=== PATIENT | female | born 1990 | race Caucasian/White ===

== ENCOUNTER 2017-12-01 14:37 | Inpatient (IN) | payer OTHER ==
[2017-12-01 15:33] LABS: BASOPHILS % (AUTO) 0.3 %; EOSINOPHILS % (AUTO) 0.1 %; HGB - HEMOGLOBIN 13.4 g/dL (12.0-16.0); LYMPHOCYTES % (AUTO) 2.6 %; MEAN CORPUSCULAR HEMOGLOBIN 30.4 pg (27.0-31.0); MEAN CORPUSCULAR HGB CONC 34.4 g/dL (32.0-36.0); MEAN CORPUSCULAR VOLUME 88.4 fL (81.0-99.0); MEAN PLATELET VOLUME 7.5 fL (7.9-10.8); MONOCYTES % (AUTO) 5.8 %; NEUTROPHILS % (AUTO) 91.2 %; PLT - PLATELET COUNT 199 10^3/uL (130-450); RED BLOOD COUNT 4.41 10^6/uL (4.20-5.40); RED CELL DISTRIBUTION WIDTH 13.1 % (12.0-15.0); WHITE BLOOD COUNT 20.8 x10^3/uL (4.8-10.8)
[2017-12-01] MEDS ORDERED: SODIUM CHLORIDE 0.9% 1,000 ML IV ONE ×2 (15:33→15:43)
[2017-12-01] MEDS ORDERED: KETOROLAC 60 MG/2 ML VIAL IVP STA (15:43)
[2017-12-01] MEDS ORDERED: ACETAMINOPHEN 1,000 MG/100 ML 100 ML IV STA (15:43)
[2017-12-01 15:44] LABS: ALBUMIN 3.7 g/dL (3.2-5.5); BILIRUBIN,TOTAL 0.4 mg/dL (0.2-1.0); CALCIUM 8.6 mg/dL (8.5-10.3); CREATININE 0.8 mg/dL (0.4-1.0); TOTAL PROTEIN 7.4 g/dL (6.7-8.2)
[2017-12-01 15:49] LABS: ABNORMAL LYMPHS % (MANUAL) 0 %
--- NOTE | 2017-12-01 15:57 | ED Physician Documentation ---
History of Present Illness - Stated complaint Stated Complaint: FEVER/CHILLS - Chief complaint Chief Complaint: Fever - Additonal information Additional information: hx from pt healthy 26 y/o f was in good health had IUD placed 5 days ago - no vag bleed or dc prior and states no infections 2 days later fever then rigors, abd pain R > left and brown vag dc, NV no diarrhea no dysuira seen in clinic today - IUD string vis, cultures done sent to ED for imaging Review of Systems Constitutional: reports: Fever, Chills Cardiac: denies: Chest pain / pressure Respiratory: denies: Dyspnea GI: reports: Abdominal Pain, Nausea. denies: Diarrhea : reports: Discharge. denies: Dysuria, Now EGA Endocrine: denies: Easy bruising / bleeding Immunocompromised: denies: Immunocompromised PD PAST MEDICAL HISTORY - Past Medical History Neuro: Migraines - Past Surgical History Past Surgical History: No - Present Medications Home Medications: Ambulatory Orders Medication Instructions Recorded Confirmed Acyclovir 400 mg PO BID 12/01/17 12/01/17 SUMAtriptan succinate [Sumatriptan 100 mg PO .ONCE THEN Q2HR PRN MDD 12/01/17 12/01/17 Succinate] 200MG Sertraline HCl 50 mg PO DAILY 12/01/17 12/01/17 - Allergies Allergies/Adverse Reactions: Allergies Allergy/AdvReac Type Severity Reaction Status Date / Time No Known Drug Allergies Allergy Verified 12/01/17 15:01 - Social History Does the pt smoke?: No Smoking Status: Never smoker Does the pt drink ETOH?: Yes Substance Use and Type: Marijuana PD ED PE NORMAL - Vitals Vital signs reviewed: Yes (very tachy) - General General: Alert and oriented X 3 - Cardiac Cardiac: RRR - Respiratory Respiratory: No respiratory distress, Clear bilaterally - Abdomen Abdomen: Soft, Other (TTP ruq and rlq, + guarding, no rebound, non distended) - Female Female : Deferred (just done in clinic [facility]) - Neuro Neuro: Alert and oriented X 3 Results - Vitals Vitals: Vital Signs - 24 hr 12/01/17 12/01/17 14:56 17:39 Temperature 38.8 C H 37.3 C Heart Rate 147 H 120 H Respiratory 18 18 Rate Blood Pressure 116/58 L 112/62 O2 Saturation 99 100 Oxygen O2 Source Room air - Labs Labs: Laboratory Tests 12/01/17 12/01/17 12/01/17 15:15 15:15 15:15 WBC 20.8 H RBC 4.41 Hgb 13.4 Hct 39.0 MCV 88.4 MCH 30.4 MCHC 34.4 RDW 13.1 Plt Count 199 MPV 7.5 L Neut # (Auto) Not Reportable Lymph # (Auto) Not Reportable [place] # (Auto) Not Reportable Eos # (Auto) Not Reportable Baso # (Auto) Not Reportable Absolute Nucleated RBC Not Reportable Total Counted 100 Band Neuts % (Manual) 5 Abnorm Lymph % (Manual) 0 Nucleated RBC % Not Reportable Neutrophils # (Manual) 18.5 H Lymphocytes # (Manual) 0.4 L Monocytes # (Manual) 1.9 H Eosinophils # (Manual) 0.0 Basophils # (Manual) 0.0 Manual Slide Review Indicated Platelet Estimate NORMAL (130-450,000) Platelet Morphology NORMAL APPEARANCE RBC Morph Micro Appear NORMAL APPEARANCE Sodium 130 L Potassium 3.1 L Chloride 100 L Carbon Dioxide 20 L Anion Gap 10.0 BUN 11 Creatinine 0.8 Estimated GFR (MDRD) 85 L Glucose 114 H Lactic Acid 1.0 Calcium 8.6 Total Bilirubin 0.4 AST 27 ALT 23 Alkaline Phosphatase 55 Total Protein 7.4 Albumin 3.7 Globulin 3.7 Albumin/Globulin Ratio 1.0 Lipase 27 Serum HCG, Qual Urine Color Urine Clarity Urine pH Ur Specific [place] Urine Protein Urine Glucose (UA) Urine Ketones Urine Occult Blood Urine Nitrite Urine Bilirubin Urine Urobilinogen Ur Leukocyte Esterase Urine RBC Urine WBC Urine WBC Clumps Ur Squamous Epith Cells Urine Bacteria Ur Microscopic Review Urine Culture Comments Urine HCG, Qual 12/01/17 12/01/17 15:15 16:20 WBC RBC Hgb Hct MCV MCH MCHC RDW Plt Count MPV Neut # (Auto) Lymph # (Auto) [place] # (Auto) Eos # (Auto) Baso # (Auto) Absolute Nucleated RBC Total Counted Band Neuts % (Manual) Abnorm Lymph % (Manual) Nucleated RBC % Neutrophils # (Manual) Lymphocytes # (Manual) Monocytes # (Manual) Eosinophils # (Manual) Basophils # (Manual) Manual Slide Review Platelet Estimate Platelet Morphology RBC Morph Micro Appear Sodium Potassium Chloride Carbon Dioxide Anion Gap BUN Creatinine Estimated GFR (MDRD) Glucose Lactic Acid Calcium Total Bilirubin AST ALT Alkaline Phosphatase Total Protein Albumin Globulin Albumin/Globulin Ratio Lipase Serum HCG, Qual NEGATIVE Urine Color YELLOW Urine Clarity SL. CLOUDY Urine pH 6.0 Ur Specific [place] 1.025 Urine Protein 100 H Urine Glucose (UA) NEGATIVE Urine Ketones 15 H Urine Occult Blood MODERATE H Urine Nitrite NEGATIVE Urine Bilirubin NEGATIVE Urine Urobilinogen 0.2 (NORMAL) Ur Leukocyte Esterase NEGATIVE Urine RBC 11-25 H Urine WBC >25 H Urine WBC Clumps PRESENT Ur Squamous Epith Cells FEW Squamous Urine Bacteria Many H Ur Microscopic Review INDICATED Urine Culture Comments INDICATED Urine HCG, Qual NEGATIVE - Rads (name of study) CT AP Radiology: See rad report (R pyelo, renal cyst, no hydro or ureteral stone, small FF morrisons likely 2/2 R pyelo, appendix not well vis but no apparent appy, IUD in place s perf) PD MEDICAL DECISION MAKING - ED course ED course: pyelo VS indicte possile sepsis so got blood cx and lactate (neg) and 30+cc/kg IVF upon ID source gave rocephin feeling better but given tachycardia and WBC feel pt merits at least overnight iVF and antibiotics spoke to hospitalist who accepts pt - Sepsis Event Vital Signs: Vital Signs - 24 hr 12/01/17 12/01/17 14:56 17:39 Temperature 38.8 C H 37.3 C Heart Rate 147 H 120 H Respiratory 18 18 Rate Blood Pressure 116/58 L 112/62 O2 Saturation 99 100 Oxygen O2 Source Room air Departure - Departure Disposition: ED Place in Observation Clinical Impression: Pyelonephritis, SIRS (systemic inflammatory response syndrome) Condition: Fair Follow-Up: Krissy Thompson DO [Provider Admit Priv/Credential] -
[2017-12-01 16:10] LABS: BAND NEUTROPHILS % (MANUAL) 5 %; LYMPHOCYTES # (MANUAL) 0.4 10^3/uL (1.5-3.5); LYMPHOCYTES % (MANUAL) 2 %; MONOCYTES # (MANUAL) 1.9 10^3/uL (0.0-1.0); NEUTROPHILS # (MANUAL) 18.5 10^3/uL (1.5-6.6); NEUTROPHILS % (MANUAL) 84 %
[2017-12-01 16:11] LABS: PLATELET ESTIMATE, MANUAL NORMAL (130-450,000) (NORMAL); PLATELET MORPHOLOGY NORMAL APPEARANCE (NORMAL); RBC MORPHOLOGY (MULTIPLE) NORMAL APPEARANCE (NORMAL)
[2017-12-01] MEDS ORDERED: IOPAMIDOL-300 100 ML VIAL ONE (16:32)
[2017-12-01 16:40] LABS: BILIRUBIN,URINE NEGATIVE (NEGATIVE); GLUCOSE, URINE (UA) NEGATIVE (NEGATIVE); KETONES,URINE (UA) 15 mg/dL (NEGATIVE); LEUKOCYTE ESTERASE, URINE NEGATIVE (NEGATIVE); NITRITE,URINE NEGATIVE (NEGATIVE); OCCULT BLOOD,URINE MODERATE (NEGATIVE); PROTEIN,URINE 100 mg/dL (NEGATIVE); UROBILINOGEN,URINE 0.2 (NORMAL) E.U./dL (NORMAL)
[2017-12-01 16:50] LABS: HCG,QUALITATIVE BLOOD NEGATIVE
[2017-12-01 16:52] LABS: CLARITY,URINE SL. CLOUDY (CLEAR); HCG UR QUAL NEGATIVE
[2017-12-01 16:53] LABS: BACTERIA,URINE Many /HPF (None Seen); SQUAMOUS EPITHELIAL CELL,UR FEW Squamous (<= Few); WBC CLUMPS,URINE PRESENT
[2017-12-01] MEDS ORDERED: IOPAMIDOL-300 100 ML VIAL IVP ONE (17:16)
--- NOTE | 2017-12-01 17:49 | CT Report ---
Reason: severe R abd pain fever tachy s/ IUD placement Procedure Date: 12/01/2017 Accession Number: [id number] / [id number] Procedure: CT - Abdomen/Pelvis W/ CPT Code: FULL RESULT: EXAM: CT ABDOMEN AND PELVIS EXAM DATE: 12/01/2017 05:14 PM. CLINICAL HISTORY: Severe R abd pain fever tachy s/ IUD placement. COMPARISONS: None. TECHNIQUE: Routine helical CT imaging was performed through the abdomen and pelvis. IV contrast: ISOVUE 300 100mL. Enteric contrast: No. Reconstructions: Coronal and sagittal. In accordance with CT protocol optimization, one or more of the following dose reduction techniques were utilized for this exam: automated exposure control, adjustment of mA and/or KV based on patient size, or use of iterative reconstructive technique. FINDINGS: Lung Bases: Unremarkable. Liver: Normal in size, contour, and enhancement. Minimal periportal edema. Gallbladder/Bile Ducts: Unremarkable. Spleen: Normal. Pancreas: Normal. Adrenal Glands: Normal. Kidneys: Left kidney unremarkable. Right kidney with moderate patchy cortical hypoenhancement in the upper to mid kidney. Mild right perinephric fat stranding. Simple-appearing 2.2 cm cortical cyst in the mid right kidney. No hydronephrosis. Possible tiny upper and lower pole right renal calculi. No hydroureter. No ureteral calculus. Peritoneal Cavity/Bowel: Unopacified stomach and small bowel are nondistended. Appendix is not clearly identified. There is minimal formed stool in the colon. There is no pericolonic fat stranding. There is minimal dependent free fluid in the pelvis area there is minimal free fluid in Morison's pouch. There is no the peritoneum or lymphadenopathy. Pelvic Organs: Bladder is unremarkable. Anteverted uterus is normal in size. IUD is in the expected position. Ovaries are not enlarged. There is a collapsed-appearing 2.1 cm rim-enhancing left ovarian cyst suggesting a corpus luteum. Vasculature: No aneurysms or other significant abnormality. Bones: Moderate disk height loss. Mild anterior endplate osteophyte formation. Small inferior Schmorl's node at T12-L1. Other: None. IMPRESSION: 1. Upper to mid pole right pyelonephritis. No hydronephrosis. Possible tiny upper and lower pole right renal calculi. 2. Minimal free fluid in Morison's pouch and in the pelvis. Minimal intrahepatic periportal edema. These findings are nonspecific but probably are related to the inflammatory state from pyelonephritis. 3. IUD in the expected position. 4. 2.1 cm probable left ovarian corpus luteum. RADIA
[2017-12-01] MEDS ORDERED: cefTRIAXone 1 GM in SODIUM CHLORIDE 0.9% MINIBAG 100 ML IV STA (18:13)
[2017-12-01] MEDS ORDERED: POTASSIUM CHLORIDE 20 MEQ TABLET PO STA (18:32)
[2017-12-01] MEDS ORDERED: SODIUM CHLORIDE FLUSH 0.9% 10 ML SYRINGE IVP PRN (19:14)
--- NOTE | 2017-12-01 19:24 | HISTORY & PHYSICAL EXAMINATION ---
Chief Complaint - Chief Complaint Chief Complaint: fever/chills History of Present Illness - Admitted From Admitted From:: ED - History Obtained From Records Reviewed: yes History obtained from: patient, chart review Exam Limitations: none - History of Present Illness HPI Comment/Other: [place] Guerra is a 26-year old female with a past medical history of IUD, depression, migraines, and without any other medical history. The patient denies recent bladder symptoms or hematuria. On November 27, she had an IUD inserted and does not recall urinating afterward. She denies recent sexual intercourse and is recently . On Friday she had some mild cramping in her low abdomen and these resolved. She went out with her friends on Friday night and became mildly intoxicated. She ran a 5K on Friday without difficulty, and by Thursday 11/30 (yesterday), she started having fevers, chills, rigors and nauseated. She denied shortness of breath, rashes, bleeding, syncope, chest pain, dysuria, or recent weight loss. An abdominal CT was done for worrisome complaints as her IUD was new. Imaging confirmed a right pyelonephritis. Lab show a very elevated WBC count of 20.8, febrile at 38.8, tachycardia with heart rates in the 140's, hyponatremia with a sodium of 130, hypokalemia with a potassium of 3.1, without any other lab abnormalities. A urine was obtained which show a UTI. She was started on Rocephin IV, that will continue. She will be admitted to inpatient for further care. History - Past Medical History Cardiovascular: reports: None Respiratory: reports: None Neuro: reports: Migraines Endocrine/Autoimmune: reports: None GI: reports: None ATTENDING PSYCHIATRIST: reports: Ovarian cysts (2.1 cm left ovarian cyst) : reports: None HEENT: reports: None Psych: reports: None Musculoskeletal: reports: None Derm: reports: None MRSA Hx?: No - Family & Social History Family History: Mother: Alive and Well, Father: Alive and Well Living arrangement: At home Living Situation: With family (lives w/ 2 year old daughter), With friend(s) (lives with a friend, recently .) Social History Notes: 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 She is going through a divorce and has a 2-year old son that she has anthropology department chair. She lives with one of her girl friends and has supportive parents that help her. She denies illicit drug use, except for occasional marijuana use, occassional alcohol use-never more than 3-4 in one sitting, and denies tobacco dependence. She wishes to be a FULL code. - Substance History Use: Uses substance without health or social issues: NONE Abuse: Recurrent use of substance despite neg consequences: NONE Dependence: Experiences withdrawal or developed tolerances: NONE - POLST Patient has POLST: No POLST Status: Full Code Meds/Allgy - Home Medications Home Medications: Ambulatory Orders Medication Instructions Recorded Confirmed Acyclovir 400 mg PO BID 12/01/17 12/01/17 SUMAtriptan succinate [Sumatriptan 100 mg PO .ONCE THEN Q2HR PRN MDD 12/01/17 12/01/17 Succinate] 200MG Sertraline HCl 50 mg PO DAILY 12/01/17 12/01/17 - Allergies Allergies/Adverse Reactions: Allergies Allergy/AdvReac Type Severity Reaction Status Date / Time No Known Drug Allergies Allergy Verified 12/01/17 15:01 Review of Systems - Constitutional Constitutional: reports: Fatigue, Fever, Chills, Weakness, Poor appetite - Cardiovascular Cariovascular: reports: Palpitations - Gastrointestinal Gastrointestinal: reports: Abdominal pain, Abdominal distention, Nausea, Bloating, Poor appetite - Genitourinary Genitourinary: reports: Dysuria - Musculoskeletal Musculoskeletal: reports: Muscle pain, Back pain, Muscle aches - Neurological Neurological: reports: General weakness, Headache - All Other Systems All Other Systems: reports: Reviewed and negative Exam - Vital Signs Reviewed Vital Signs: Yes Vital Signs: Vital Signs x48h Temp Pulse Resp BP Pulse Ox 12/01/17 18:35 37.1 C 110 H 24 107/64 100 12/01/17 17:39 37.3 C 120 H 18 112/62 100 12/01/17 14:56 38.8 C H 147 H 18 116/58 L 99 - Physical Exam General Appearance: positive: Alert, Moderate distress Eyes Bilateral: positive: Normal inspection, PERRL ENT: positive: ENT inspection nml, Pharynx nml, No signs of dehydration Neck: positive: Nml inspection, Thyroid nml, No JVD, Trachea midline Respiratory: positive: Chest non-tender, No respiratory distress, Other (scattered crackles bilaterally) Cardiovascular: positive: Regular rate & rhythm, No murmur, No gallop Peripheral Pulses: positive: 2+ Abdomen: positive: Tenderness, Guarding, Abnml bowel sounds Back: positive: Nml inspection Skin: positive: No rash, Warm, Dry, Diaphoresis, Pallor Extremities: positive: Non-tender, Full ROM, Nml appearance, No pedal edema Neurologic/Psychiatric: positive: Oriented x3, CN's nml (2-12), Motor nml, Sensation nml, Mood/affect nml Reflexes: Bicep (R): 4+, Bicep (L): 4+ Conclusion/Plan - Problem List (1) Pyelonephritis Conclusion/Plan: The patient denies recent bladder symptoms or hematuria. On November 27, she had an IUD inserted and does not recall urinating afterward. She denies recent sexual intercourse and is recently . On Friday she had some mild cramping in her low abdomen and these resolved. She went out with her friends on Friday night and became mildly intoxicated. She ran a 5K on Friday without difficulty, and by Thursday 11/30 (yesterday), she started having fevers, chills, rigors and nauseated. An abdominal CT was done for worrisome complaints as her IUD was new. Imaging confirmed a right pyelonephritis. She was started on Rocephin IV, that will continue. Plan: Continue IVFs, pain control and IV rocephin. (3) CVA tenderness Conclusion/Plan: Upon exam the patient is sore with palpation to right and left mid-back. She states that she has had back pain for the past few days, but this has become much worse today. Plan: Continue to monitor. (4) Ovarian cyst, left Conclusion/Plan: On imaging the patient is noted to have a 2.1 mm left ovarian cyst. It is not found anywhere in her history. She has low abdominal tenderness on exam that is bilateral. Plan: Discuss with her in the AM. (5) Chronic migraine Conclusion/Plan: The patient states that she even had headaches as a child and now gets them when she has her menses. Plan: Continue to monitor. - Lab Results Lab results reviewed: Yes Fish Bones: 12/02/17 05:42 12/02/17 05:42 - Diagnostic Imaging Results Diagnostic Imaging Results: positive: Final report reviewed Core Measures - Anticipated LOS I expect patient to be DC'd or transferred within 96 hours.: Yes - DVT/VTE - Prophylaxis VTE/DVT Device ordered at admit?: Yes VTE/DVT Prophylaxis med ordered at admit?: Yes - Stroke - Rehab Assessment Rehab services assessment to be ordered?: No Not Ordered - Medical Reason: Contraindicated - AMI - Statin at Admit Aspirin Prescribed on Admit: No Not Ordered - Medical Reason: Contraindicated
[2017-12-01] MEDS: NS W/20 MEQ KCL 1,000 ML IV SCH (20:27)
[2017-12-01] MEDS: KETOROLAC 30 MG/ML VIAL IVP PRN (21:24)
[2017-12-01] MEDS ORDERED: HYDROmorphone 1 MG/ML CARPUJECT IVP PRN (21:51)
[2017-12-01] MEDS ORDERED: diphenhydrAMINE INJ 50 MG/ML VIAL IVP PRN (21:52)
[2017-12-01] MEDS ORDERED: IBUPROFEN 600 MG TABLET PO PRN (21:55)
[2017-12-02] MEDS ORDERED: IBUPROFEN 600 MG TABLET PO SCH
[2017-12-02] MEDS: SODIUM CHLORIDE FLUSH 0.9% 10 ML SYRINGE IVP SCH ×3 (00:07→17:31)
[2017-12-02] MEDS: ACETAMINOPHEN 325 MG TABLET PO PRN ×3 (01:46→14:48)
[2017-12-02] MEDS: NS W/20 MEQ KCL 1,000 ML IV SCH ×3 (04:10→20:18)
[2017-12-02 05:55] LABS: BASOPHILS % (AUTO) 0.1 %; HGB - HEMOGLOBIN 11.4 g/dL (12.0-16.0); LYMPHOCYTES # (AUTO) 0.8 10^3/uL (1.5-3.5); LYMPHOCYTES % (AUTO) 5.2 %; MEAN CORPUSCULAR HEMOGLOBIN 30.9 pg (27.0-31.0); MEAN CORPUSCULAR VOLUME 90.9 fL (81.0-99.0); MEAN PLATELET VOLUME 7.5 fL (7.9-10.8); MONOCYTES # (AUTO) 1.1 10^3/uL (0.0-1.0); MONOCYTES % (AUTO) 7.1 %; NEUTROPHILS # (AUTO) 13.6 10^3/uL (1.5-6.6); NEUTROPHILS % (AUTO) 87.6 %; PLT - PLATELET COUNT 167 10^3/uL (130-450); RED BLOOD COUNT 3.69 10^6/uL (4.20-5.40); WHITE BLOOD COUNT 15.5 x10^3/uL (4.8-10.8)
[2017-12-02 06:08] LABS: ALBUMIN 2.9 g/dL (3.2-5.5); ALBUMIN/GLOBULIN RATIO 1.1 (1.0-2.2); BILIRUBIN,TOTAL 0.6 mg/dL (0.2-1.0); CALCIUM 7.3 mg/dL (8.5-10.3); CREATININE 0.6 mg/dL (0.4-1.0); TOTAL PROTEIN 5.6 g/dL (6.7-8.2)
[2017-12-02] MEDS: KETOROLAC 30 MG/ML VIAL IVP PRN (06:54)
[2017-12-02] MEDS: ENOXAPARIN 40 MG/0.4 ML SYRINGE SUBQ SCH (08:19)
[2017-12-02] MEDS: SERTRALINE 50 MG TABLET PO SCH (08:19)
[2017-12-02] MEDS: POLYETHYLENE GLYCOL 3350 17 GM PACKET PO SCH (08:20)
[2017-12-02] MEDS: SACCHAROMYCES BOULARDII 250 MG CAPSULE PO SCH ×2 (09:53→17:30)
[2017-12-02] MEDS ORDERED: cefTRIAXone 1 GM in SODIUM CHLORIDE 0.9% MINIBAG 100 ML IV SCH (12:00)
[2017-12-02] MEDS ORDERED: cefTRIAXone 1 GM VIAL IVP SCH (12:00)
[2017-12-02] MEDS ORDERED: ONDANSETRON ODT 4 MG TABLET TL PRN (14:34)
[2017-12-02] MEDS: ONDANSETRON 4 MG/2 ML VIAL IVP PRN (14:45)
--- NOTE | 2017-12-02 21:57 | PROVIDER PROGRESS NOTE ---
Subjective - Prog Note Date Prog Note Date: 12/02/17 Prog Note Time: 12:00 - Subjective Pt reports feeling: Improved Subjective: [place] admits to overall improvement, but is found to be nauseated with active vomiting upon exam. She denies any new symptoms such as headache, shortness of breath, chest pain, bleeding, a new cough, or increased dizziness. Current Medications - Current Medications Current Medications: Active Medications Acetaminophen (Tylenol) 650 mg PO Q4HR PRN PRN Reason: Pain or Fever > 38C (100.4F) Last Admin: 12/02/17 14:48 Dose: 650 mg Diphenhydramine HCl (Benadryl Inj) 25 mg IVP Q6H PRN PRN Reason: Allergy Symptoms Enoxaparin Sodium (Lovenox) 40 mg SUBQ DAILY [facility] Last Admin: 12/02/17 08:19 Dose: 40 mg Hydromorphone HCl (Dilaudid Inj Carp) 1 mg IVP Q2HR PRN PRN Reason: PAIN Potassium Chloride/Sodium Chloride (Normal Saline 0.9% W/20 Meq Kcl) 1,000 mls @ 125 mls/hr IV .Q8H [facility] Last Admin: 12/02/17 20:18 Dose: 125 mls/hr Ibuprofen (Motrin) 600 mg PO Q6HR PRN PRN Reason: FEVER > 100.5 F Last Admin: 12/02/17 14:04 Dose: 600 mg Ketorolac Tromethamine (Toradol Inj (30mg)) 30 mg IVP Q6HR PRN PRN Reason: PAIN Stop: 12/06/17 21:05 Last Admin: 12/02/17 06:54 Dose: 30 mg Ondansetron HCl (Zofran Inj) 4 mg IVP Q4HR PRN PRN Reason: Nausea / Vomiting Last Admin: 12/02/17 14:45 Dose: 4 mg Ondansetron HCl (Zofran Odt) 4 mg TL Q4HR PRN PRN Reason: Nausea / Vomiting Polyethylene Glycol (Miralax) 17 gm PO DAILY [facility] Last Admin: 12/02/17 08:20 Dose: Not Given Saccharomyces Boulardii (Florastor) 500 mg PO BIDWM [facility] Last Admin: 12/02/17 17:30 Dose: 500 mg Sertraline HCl (Zoloft) 50 mg PO DAILY [facility] Last Admin: 12/02/17 08:19 Dose: 50 mg Sodium Chloride (Normal Saline Flush 0.9%) 10 ml IVP PRN PRN PRN Reason: NEEDED PER PROVIDER ORDERS Last Admin: 12/01/17 20:27 Dose: 10 ml Sodium Chloride (Normal Saline Flush 0.9%) 10 ml IVP 0100,0900,1700 [facility] Last Admin: 12/02/17 17:31 Dose: Not Given Acyclovir 400 mg PO BID 12/01/17 SUMAtriptan succinate [Sumatriptan Succinate] 100 mg PO .ONCE THEN Q2HR PRN MDD 200MG 12/01/17 Sertraline HCl 50 mg PO DAILY 12/01/17 Objective - Vital Signs/Intake & Output Reviewed Vital Signs: Yes Vital Signs: Vital Signs x48h Temp Pulse Resp BP Pulse Ox 12/02/17 15:50 37.2 C 119 H 18 103/64 99 Intake & Output: Intake & Output 11/29/17 11/30/17 12/01/17 12/02/17 23:59 23:59 23:59 23:59 Intake Total 2200 3272.916 Output Total 1000 Balance 2200 2272.916 - Objective General Appearance: positive: Alert, Moderate distress, Anxious Eyes Bilateral: positive: Normal inspection, PERRL ENT: positive: ENT inspection nml, Pharynx nml Neck: positive: Nml inspection, Thyroid nml, No JVD, Lymphadenopathy (R), Lymphadenopathy (L) Respiratory: positive: Chest non-tender, No respiratory distress, Breath sounds nml Cardiovascular: positive: Regular rate & rhythm, No murmur, No gallop, Tachycardia Peripheral Pulses: 1+ Radial (R), 1+ Radial (L) Abdomen: positive: Nml bowel sounds, Tenderness, Guarding Back: positive: Nml inspection, CVA tenderness (R), CVA tenderness (L) Skin: positive: No rash, Warm, Dry, Diaphoresis, Pallor Extremities: positive: Non-tender, Full ROM, Nml appearance, No pedal edema Neurologic/Psychiatric: positive: Oriented x3, CN's nml (2-12), Motor nml, Sensation nml, Mood/affect nml Reflexes: Bicep (R): 4+, Bicep (L): 4+ - Lab Results Fish Bones: 12/03/17 04:15 12/03/17 04:15 Other Labs: Lab Results x24hrs 12/02/17 12/02/17 Range/Units 05:42 05:42 WBC 15.5 H (4.8-10.8) x10^3/uL RBC 3.69 L (4.20-5.40) 10^6/uL Hgb 11.4 L (12.0-16.0) g/dL Hct 33.6 L (37.0-47.0) % MCV 90.9 (81.0-99.0) fL MCH 30.9 (27.0-31.0) pg MCHC 34.0 (32.0-36.0) g/dL RDW 13.0 (12.0-15.0) % Plt Count 167 (130-450) 10^3/uL MPV 7.5 L (7.9-10.8) fL Neut # (Auto) 13.6 H (1.5-6.6) 10^3/uL Lymph # (Auto) 0.8 L (1.5-3.5) 10^3/uL [place] # (Auto) 1.1 H (0.0-1.0) 10^3/uL Eos # (Auto) 0.0 (0.0-0.7) 10^3/uL Baso # (Auto) 0.0 (0.0-0.1) 10^3/uL Absolute Nucleated RBC 0.00 x10^3/uL Nucleated RBC % 0.0 /100WBC Sodium 136 (135-145) mmol/L Potassium 3.8 (3.5-5.0) mmol/L Chloride 110 (101-111) mmol/L Carbon Dioxide 21 (21-32) mmol/L Anion Gap 5.0 L (6-13) BUN 7 (6-20) mg/dL Creatinine 0.6 (0.4-1.0) mg/dL Estimated GFR (MDRD) 119 (>89) Glucose 118 H (70-100) mg/dL Calcium 7.3 L (8.5-10.3) mg/dL Total Bilirubin 0.6 (0.2-1.0) mg/dL AST 41 (10-42) IU/L ALT 37 (10-60) IU/L Alkaline Phosphatase 57 (42-121) IU/L Total Protein 5.6 L (6.7-8.2) g/dL Albumin 2.9 L (3.2-5.5) g/dL Globulin 2.7 (2.1-4.2) g/dL Albumin/Globulin Ratio 1.1 (1.0-2.2) ABX Reporting Has patient been on IV antibiotics over the past 48 hours?: Yes Assessment/Plan - Problem List (1) Pyelonephritis Impression: The patient denies recent bladder symptoms or hematuria. On November 27, she had an IUD inserted and does not recall urinating afterward. She de nies recent sexual intercourse and is recently . On Friday she had some mild cramping in her low abdomen and these resolved. She went out with her friends on Friday night and became mildly intoxicated. She ran a 5K on Friday without difficulty, and by Thursday 11/30 (yesterday), she started having fevers, chills, rigors and nauseated. An abdominal CT was done for worrisome complaints as her IUD was new. Imaging confirmed a right pyelonephritis. She was started on Rocephin IV, that will continue. Clinically today she continues to improve, although is nauseated. She denies dysuria, but states that her urine color is not her normal as it appears darker. Plan: Continue IVFs, pain control and IV rocephin. (2) Nausea and vomiting Impression: The patient is found actively vomiting and was given zofran. She states that she has had a good appetite and has been able to eat. She states that the nausea just "sneaks up on her", and was at first reluctant in taking the zofran. This improved by later in the day. Plan: Continue to monitor and offer anti emetics. (3) CVA tenderness Impression: Upon exam the patient is sore with palpation to right and left mid-back. She states that she has had back pain for the past few days, but this has become much worse upon my initial exam. This is not a complaint of hers today and she states that she is moving around well. Plan: Continue to monitor. (4) Ovarian cyst, left Impression: On imaging the patient is noted to have a 2.1 mm left ovarian cyst. It is not found anywhere in her history. She has low abdominal tenderness on exam that is bilateral. The patient was told of this finding and this will be monitored. She denies increased LLQ pain or discomfort. Plan: Recommend follow up with her PCP. (5) Chronic migraine Impression: The patient states that she even had headaches as a child and now gets them when she has her menses. She denies headache today, although she is nauseated and vomiting today. She states that in the past she has used wild yam root with good success, and is prescribed Imatrex PRN which she only uses 2-3 times per year. Plan: Continue to monitor. (6) Fever Impression: The patient had an elevated temp upon admission of 38.8, that has now normalized. Blood cultures were taken, that hare negative so far. She denies chills, or sweats. Plan: Continue to monitor.
[2017-12-03] MEDS: ONDANSETRON 4 MG/2 ML VIAL IVP PRN (00:26)
[2017-12-03] MEDS: SODIUM CHLORIDE FLUSH 0.9% 10 ML SYRINGE IVP SCH ×2 (00:28→10:16)
[2017-12-03] MEDS: NS W/20 MEQ KCL 1,000 ML IV SCH (03:53)
[2017-12-03 04:53] LABS: BASOPHILS # (AUTO) 0.1 10^3/uL (0.0-0.1); BASOPHILS % (AUTO) 0.7 %; EOSINOPHILS % (AUTO) 0.1 %; HGB - HEMOGLOBIN 11.2 g/dL (12.0-16.0); LYMPHOCYTES # (AUTO) 1.1 10^3/uL (1.5-3.5); LYMPHOCYTES % (AUTO) 9.2 %; MEAN CORPUSCULAR HEMOGLOBIN 30.9 pg (27.0-31.0); MEAN CORPUSCULAR HGB CONC 34.2 g/dL (32.0-36.0); MEAN CORPUSCULAR VOLUME 90.6 fL (81.0-99.0); MEAN PLATELET VOLUME 8.3 fL (7.9-10.8); MONOCYTES # (AUTO) 0.9 10^3/uL (0.0-1.0); MONOCYTES % (AUTO) 7.5 %; NEUTROPHILS # (AUTO) 10.2 10^3/uL (1.5-6.6); NEUTROPHILS % (AUTO) 82.5 %; PLT - PLATELET COUNT 188 10^3/uL (130-450); RED BLOOD COUNT 3.63 10^6/uL (4.20-5.40); RED CELL DISTRIBUTION WIDTH 13.6 % (12.0-15.0); WHITE BLOOD COUNT 12.4 x10^3/uL (4.8-10.8)
[2017-12-03 05:01] LABS: ALBUMIN 2.7 g/dL (3.2-5.5); ALBUMIN/GLOBULIN RATIO 0.9 (1.0-2.2); BILIRUBIN,TOTAL 0.5 mg/dL (0.2-1.0); CALCIUM 7.4 mg/dL (8.5-10.3); CREATININE 0.6 mg/dL (0.4-1.0); TOTAL PROTEIN 5.7 g/dL (6.7-8.2)
[2017-12-03] MEDS: ACETAMINOPHEN 325 MG TABLET PO PRN (06:48)
[2017-12-03 07:47] VITALS: BP 127/77
[2017-12-03] MEDS: ENOXAPARIN 40 MG/0.4 ML SYRINGE SUBQ SCH (08:12)
[2017-12-03] MEDS: SACCHAROMYCES BOULARDII 250 MG CAPSULE PO SCH (08:12)
[2017-12-03] MEDS: POLYETHYLENE GLYCOL 3350 17 GM PACKET PO SCH (08:12)
[2017-12-03] MEDS: SERTRALINE 50 MG TABLET PO SCH (08:12)
--- NOTE | 2017-12-03 08:25 | Discharge Plan ---
Discharge Plan Disposition: Home, Self Care Condition: Good Prescriptions: Amoxicillin/Potassium Clav [Amox Tr-K Clv 875-125 mg Tab] 1 each PO BID 7 Days #14 tablet Ondansetron HCl [Zofran] 4 mg PO Q4H #25 tablet Saccharomyces Boulardii [Florastor] 250 mg PO BID #60 capsule Diet: Regular Activity Restrictions: No Restrictions Shower Restrictions: No Driving Restrictions: No Weight Bearing: Full Weight Additional Instructions or Follow Up instructions: You were admitted for a kidney infection or pyelonephritis and given IV antibiotics. A urine sample showed e. coli, with sensitivities to several antibiotics. Please continue antibiotics by mouth for another 7 days at home. Also, take a probiotic as antibiotics can cause diarrhea. You were nauseated as a consequence of this illness, so I have also sent zofran to the pharmacy. You should drink more fluids than you normally would for the next week. No Smoking: If you smoke, Please STOP! Call for help. Follow-up with: Krissy Thompson DO [Provider Admit Priv/Credential] -
--- NOTE | 2017-12-03 10:40 | DISCHARGE SUMMARY ---
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 Dorsalgia, unspecified- resolved. Fever, unspecified- resolved. Unspecified ovarian cyst, left side- chronic, stable. Presence of (intrauterine) contraceptive device- chronic, stable. Nausea- improved, zofran sent to the pharmacy. Chronic migraine- chronic, stable. - HPI History of Present Illness: Indiana Guerra is a 26-year old female with a past medical history of IUD, depression, migraines, and without any other medical history. The patient denies recent bladder symptoms or hematuria. On November 27, she had an IUD inserted and does not recall urinating afterward. She denies recent sexual intercourse and is recently . On Friday she had some mild cramping in her low abdomen and these resolved. She went out with her friends on Friday night and became mildly intoxicated. She ran a 5K on Friday without difficulty, and by Thursday 11/30 (yesterday), she started having fevers, chills, rigors and nauseated. She denied shortness of breath, rashes, bleeding, syncope, chest pain, dysuria, or recent weight loss. An abdominal CT was done for worrisome complaints as her IUD was new. Imaging confirmed a right pyelonephritis. Lab show a very elevated WBC count of 20.8, febrile at 38.8, tachycardia with heart rates in the 140's, hyponatremia with a sodium of 130, hypokalemia with a potassium of 3.1, without any other lab abnormalities. A urine was obtained which show a UTI. She was started on Rocephin IV, that will continue. She will be admitted to inpatient for further care. - HOSPITAL COURSE Hospital Course: (1) Pyelonephritis The patient denies recent bladder symptoms or hematuria. On November 27, she had an IUD inserted and does not recall urinating afterward. She denies recent sexual intercourse and is recently . On Friday she had some mild cramping in her low abdomen and these resolved. She went out with her friends on Friday night and became mildly intoxicated. She ran a 5K on Friday without difficulty, and by Thursday 11/30 (yesterday), she started having fevers, chills, rigors and nauseated. An abdominal CT was done for worrisome complaints as her IUD was new. Imaging confirmed a right pyelonephritis. She was started on Rocephin IV, that was continued and changed to Augmentin to be continued for another 7 days at home; based on a urine culture that grew out e. coli that had several sensitivities. Clinically she continued to improve, although was mildly nauseated at times. She denied dysuria, but stated that her urine color is not her normal as it appears darker. This condition was stable, and she is expected to do well at home providing that she keeps up with her antibiotics. (2) Nausea and vomiting The patient is found actively vomiting and was given zofran. She states that she has had a good appetite and has been able to eat. She states that the nausea just "sneaks up on her", and was at first reluctant in taking the zofran. This improved and she was given zofran which was sent to the pharmacy. (3) CVA tenderness Upon exam the patient is sore with palpation to right and left mid-back. She states that she has had back pain for the past few days, but this has become much worse upon my initial exam. This is not a complaint of hers today and she states that she is moving around well. (4) Ovarian cyst, left On imaging the patient is noted to have a 2.1 mm left ovarian cyst, although it was noted to a corpus luteum type, so this will likely go away. She has low abdominal tenderness on exam that is bilateral. The patient was told of this finding and this will be monitored. She denied increased LLQ pain or discomf ort. (5) Chronic migraine The patient states that she even had headaches as a child and now gets them when she has her menses. She denied headaches, although she was nauseated and vomiting. She states that in the past she has used wild yam root with good success, and is prescribed Imatrex PRN which she only uses 2-3 times per year. This condition is stable. (6) Fever The patient had an elevated temp upon admission of 38.8, that has now nor malized. Blood cultures were taken, that remain negative at the time of discharge. She denied chills, or sweats overnight and this condition is resolved. (7) IUD implant The patient's PCP implanted an IUD for continued contraception, and this was double checked prior to this admission for any abnormalities. Disposition: The patient was anxious to return home with her 2-year old son with her parent to help. Her prescriptions were sent to her pharmacy of choice. She was medically stable and transported via private car home. - ALLERGIES Allergies/Adverse Reactions: Allergies Allergy/AdvReac Type Severity Reaction Status Date / Time No Known Drug Allergies Allergy Verified 12/01/17 15:01 - MEDICATIONS Home Medications: Ambulatory Orders Medication Instructions Recorded Confirmed Acyclovir 400 mg PO BID 12/01/17 12/01/17 SUMAtriptan succinate [Sumatriptan 100 mg PO .ONCE THEN Q2HR PRN MDD 12/01/17 12/01/17 Succinate] 200MG Sertraline HCl 50 mg PO DAILY 12/01/17 12/01/17 Amoxicillin/Potassium Clav [Amox 1 each PO BID 7 Days #14 tablet 12/03/17 Tr-K Clv 875-125 mg Tab] Ondansetron HCl [Zofran] 4 mg PO Q4H #25 tablet 12/03/17 Saccharomyces Boulardii [Florastor] 250 mg PO BID #60 capsule 12/03/17 - PHYSICAL EXAM AT DISCHARGE General Appearance: positive: No acute distress, Alert Eyes Bilateral: positive: Normal inspection, PERRL ENT: positive: ENT inspection nml, Pharynx nml, No signs of dehydration Neck: positive: Nml inspection, Thyroid nml, No JVD, Trachea midline Respiratory: positive: Chest non-tender, No respiratory distress, Breath sounds nml Cardiovascular: positive: Regular rate & rhythm, No murmur, No gallop Peripheral Pulses: positive: 2+ Abdomen: positive: Non-tender, Nml bowel sounds, Guarding Back: positive: Nml inspection Skin: positive: Color nml, No rash, Warm, Dry Extremities: positive: Non-tender, Full ROM, Nml appearance, No pedal edema Neurologic/Psychiatric: positive: Oriented x3, CN's nml (2-12), Motor nml, Sensation nml, Mood/affect nml Reflexes: Bicep (R): 4+, Bicep (L): 4+ - LABS Result Diagrams: 12/03/17 04:15 12/03/17 04:15 - DIAGNOSTIC IMAGING Diagnostic Imaging Results: Final report reviewed Diagnostic Imaging Results Comments: EXAM: CT ABDOMEN AND PELVIS EXAM DATE: 12/01/2017 05:14 PM. IMPRESSION: 1. Upper to mid pole right pyelonephritis. No hydronephrosis. Possible tiny upper and lower pole right renal calculi. 2. Minimal free fluid in Morison's pouch and in the pelvis. Minimal intrahepatic periportal edema. These findings are nonspecific but probably are related to the inflammatory state from pyelonephritis. 3. IUD in the expected position. 4. 2.1 cm probable left ovarian corpus luteum. - FOLLOW UP Follow Up: Disposition: 01 Home, Self Care Condition: Good Prescriptions: Amoxicillin/Potassium Clav [Amox Tr-K Clv 875-125 mg Tab] 1 each PO BID 7 Days #14 tablet Ondansetron HCl [Zofran] 4 mg PO Q4H #25 tablet Saccharomyces Boulardii [Florastor] 250 mg PO BID #60 capsule Diet: Regular Activity Restrictions: No Restrictions Shower Restrictions: No Driving Restrictions: No Weight Bearing: Full Weight Additional Instructions or Follow Up instructions: You were admitted for a kidney infection or pyelonephritis and given IV antibiotics. A urine sample showed e. coli, with sensitivities to several antibiotics. Please continue antibiotics by mouth for another 7 days at home. Also, take a probiotic as antibiotics can cause diarrhea. You were nauseated as a consequence of this illness, so I have also sent zofran to the pharmacy. You should drink more fluids than you normally would for the next week. - TIME SPENT Time Spent in Discharge (Minutes): 50
== END 2017-12-03 11:16 | disposition home or self-care (01) | DRG 690 ==
LOC: ED 14:37 → MS3 19:14
PROVIDERS: ADMIT Nurse Practitioner; ATTEND Nurse Practitioner
DX: N12 Tubulo-interstitial nephritis, not specified as acute or chronic (principal); E87.1 Hypo-osmolality and hyponatremia; E87.6 Hypokalemia; N83.292 Other ovarian cyst, left side; M54.9 Dorsalgia, unspecified; Z97.5 Presence of (intrauterine) contraceptive device; R11.2 Nausea with vomiting, unspecified
CPT/HCPCS: 36415; 74177; 80053; 81001; 81003; 81025; 83605; 83690; 84703; 85025; 87040; 87086; 87181; 96361; 96365; 96375; 99283; 99284

== ENCOUNTER 2018-01-12 10:42 | Outpatient (CLI) | payer OTHER | END 2018-01-12 10:43 | disposition home or self-care (01) | LOC: LAB.WCP 10:42 | PROVIDERS: ATTEND Physician Assistant Medical | DX: R10.2 Pelvic and perineal pain (principal) | CPT/HCPCS: 36415; 84702 ==

== ENCOUNTER 2018-01-12 21:01 | Outpatient (CLI) | payer OTHER ==
--- NOTE | 2018-01-12 22:17 | Ultrasound Report ---
Reason: PELVIC PAIN Procedure Date: 01/12/2018 Accession Number: [id number] / [id number] Procedure: US - Pelvic w/Transvaginal CPT Code: FULL RESULT: EXAM: PELVIC ULTRASOUND EXAM DATE: 01/12/2018 09:14 PM. CLINICAL HISTORY: Pelvic pain. Bleeding. IUD one month ago. COMPARISON: None. TECHNIQUE: Realtime transabdominal pelvic scan performed to identify the uterus and adnexa and as an overview of other pelvic structures, followed by transvaginal scan to provide greater detail of the uterus and adnexa, with static image documentation. FINDINGS: Uterus: 12.8 x 6.0 x 6.5 cm, volume 258.2 cc. Anteverted position. Normal overall size and echotexture. Masses: None. Endometrium: [address] Cervix: Unremarkable. Right Ovary: 3.9 x 2.5 x 1.0 cm, volume 4.9 cc. Normal echotexture and blood flow. Left Ovary: 3.2 x 2.6 x 3.2 cm, volume 13.6 cc. Normal echotexture and blood flow. Free Fluid: None. Other: None. IMPRESSION: IUD in place, otherwise unremarkable pelvic ultrasound. RADIA
== END 2018-01-12 21:02 | disposition home or self-care (01) ==
LOC: DI 21:01
PROVIDERS: ATTEND Physician Assistant Medical
DX: R10.2 Pelvic and perineal pain (principal); Z97.5 Presence of (intrauterine) contraceptive device
CPT/HCPCS: 36415; 76830; 76856; 84702

== ENCOUNTER 2018-01-26 11:14 | Outpatient (CLI) | payer OTHER | END 2018-01-26 11:15 | disposition home or self-care (01) | LOC: LAB 11:14 | PROVIDERS: ATTEND Obstetrics & Gynecology | DX: O03.9 Complete or unspecified spontaneous abortion without complication (principal) | CPT/HCPCS: 36415; 84702 ==

== ENCOUNTER 2019-02-26 08:34 | Emergency (ER) | payer SELFPAY ==
[2019-02-26] MEDS ORDERED: cefTRIAXone 1 GM VIAL IVP STA (09:05)
[2019-02-26] MEDS ORDERED: SODIUM CHLORIDE 0.9% 1,000 ML IV ONE (09:05)
[2019-02-26] MEDS ORDERED: IBUPROFEN 600 MG TABLET PO STA (09:24)
--- NOTE | 2019-02-26 09:26 | ED Physician Documentation ---
History of Present Illness - Stated complaint Stated Complaint: FEMALE - Chief complaint Chief Complaint: Abd Pain - History obtained from History obtained from: Patient - History of Present Illness Timing: How many weeks ago (1) Pain level max: 7 Pain level now: 5 - Additonal information Additional information: 28-year-old female presents to the emergency department with fever, chills and left flank pain. Has had pyelonephritis in the past. States that this feels similar. No vaginal bleeding or discharge. No change in sexual partners. No STI exposure. No abdominal pain. Some nausea. No vomiting. No diarrhea. Does have some dysuria as well. Worse with urination, better with rest. 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 : None HEENT: None Psych: None Musculoskeletal: None Derm: None - Past Surgical History Past Surgical History: No - Present Medications Home Medications: Ambulatory Orders Medication Instructions Recorded Confirmed Cefdinir 300 mg PO BID #28 capsule 02/26/19 Ondansetron Odt [Zofran] 4 mg TL Q6H PRN #10 tablet 02/26/19 - Allergies Allergies/Adverse Reactions: Allergies Allergy/AdvReac Type Severity Reaction Status Date / Time Penicillins Allergy Emesis Verified 02/26/19 08:55 - Social History Does the pt smoke?: No Smoking Status: Never smoker Does the pt drink ETOH?: Yes - POLST Patient has POLST: No POLST Status: Full Code PD ED PE NORMAL - Vitals Vital signs reviewed: Yes - General General: Alert and oriented X 3, No acute distress, Well developed/nourished - HEENT HEENT: PERRL, Moist mucous membranes - Neck Neck: Supple, no meningeal sign - Cardiac Cardiac: RRR, Strong equal pulses - Respiratory Respiratory: No respiratory distress, Clear bilaterally - Abdomen Abdomen: Soft, Non tender, Non distended - Back Back: Other (L cvat) - Derm Derm: Warm and dry - Neuro Neuro: Alert and oriented X 3 - Psych Psych: Normal mood, Normal affect Results - Vitals Vitals: Vital Signs - 24 hr 02/26/19 02/26/19 02/26/19 08:52 08:55 10:20 Temperature 38.8 C H Heart Rate 130 H 113 H 117 H Respiratory 18 16 Rate Blood Pressure 121/70 121/78 102/72 O2 Saturation 100 100 02/26/19 10:48 Temperature 37.7 C H Heart Rate 114 H Respiratory 16 Rate Blood Pressure 108/64 O2 Saturation 99 Oxygen O2 Source Room air - Labs Labs: Laboratory Tests 02/26/19 02/26/19 02/26/19 09:06 09:06 09:06 WBC 11.5 H RBC 4.53 Hgb 12.8 Hct 38.8 MCV 85.7 MCH 28.3 MCHC 33.0 RDW 14.6 Plt Count 257 MPV 10.0 Neut # (Auto) 9.1 H Lymph # (Auto) 0.9 L [place] # (Auto) 1.2 H Eos # (Auto) 0.2 Baso # (Auto) 0.1 Absolute Nucleated RBC 0.00 Nucleated RBC % 0.0 Sodium 136 Potassium 3.2 L Chloride 101 Carbon Dioxide 25 Anion Gap 10.0 BUN 8 Creatinine 0.8 Estimated GFR (MDRD) 84 L Glucose 119 H Lactic Acid Calcium 8.8 Total Bilirubin 0.7 AST 16 ALT 11 Alkaline Phosphatase 50 Total Protein 7.9 Albumin 4.0 Globulin 3.9 Albumin/Globulin Ratio 1.0 Lipase 27 Urine Color YELLOW Urine Clarity SL. CLOUDY Urine pH 6.0 Ur Specific [place] 1.020 Urine Protein TRACE Urine Glucose (UA) NEGATIVE Urine Ketones 40 H Urine Occult Blood TRACE-INTA Urine Nitrite POSITIVE H Urine Bilirubin NEGATIVE Urine Urobilinogen 0.2 (NORMAL) Ur Leukocyte Esterase TRACE H Urine RBC 0-5 Urine WBC >25 H Ur Squamous Epith Cells MOD Squamous H Urine Bacteria Moderate H Ur Microscopic Review INDICATED Urine Culture Comments NOT INDICATED Urine HCG, Qual NEGATIVE 02/26/19 09:33 WBC RBC Hgb Hct MCV MCH MCHC RDW Plt Count MPV Neut # (Auto) Lymph # (Auto) [place] # (Auto) Eos # (Auto) Baso # (Auto) Absolute Nucleated RBC Nucleated RBC % Sodium Potassium Chloride Carbon Dioxide Anion Gap BUN Creatinine Estimated GFR (MDRD) Glucose Lactic Acid 0.7 Calcium Total Bilirubin AST ALT Alkaline Phosphatase Total Protein Albumin Globulin Albumin/Globulin Ratio Lipase Urine Color Urine Clarity Urine pH Ur Specific [place] Urine Protein Urine Glucose (UA) Urine Ketones Urine Occult Blood Urine Nitrite Urine Bilirubin Urine Urobilinogen Ur Leukocyte Esterase Urine RBC Urine WBC Ur Squamous Epith Cells Urine Bacteria Ur Microscopic Review Urine Culture Comments Urine HCG, Qual PD MEDICAL DECISION MAKING - ED course Complexity details: reviewed results, re-evaluated patient, considered differential, d/w patient ED course: Patient has pyelonephritis. She is very well-appearing. Her fever decreased. Heart rate decreased. Lactate is normal. Given Rocephin IV. Will place on cefdinir for home. Patient counseled regarding signs and symptoms for which I believe and urgent re-evaluation would be necessary. Patient with good understanding of and agreement to plan and is comfortable going home at this time This document was made in part using voice recognition software. While efforts are made to proofread this document, sound alike and grammatical errors may occur. Departure - Departure Disposition: 01 Home, Self Care Clinical Impression: Pyelonephritis Fever Qualifiers: Fever type: unspecified Qualified Code(s): R50.9 - Fever, unspecified Condition: Good Instructions: ED Kidney Infec Female Follow-Up: Kelley Hayes PA-C [Primary Care Provider] - Within 1 week Prescriptions: Cefdinir 300 mg PO BID #28 capsule Ondansetron Odt [Zofran] 4 mg TL Q6H PRN #10 tablet PRN Reason: Nausea / Vomiting Comments: Take all antibiotics until gone. Return if you worsen. Follow-up with your doctor for further care. Discharge Date/Time: 02/26/19 10:47
[2019-02-26 09:30] LABS: BASOPHILS # (AUTO) 0.1 10^3/uL (0.0-0.1); BASOPHILS % (AUTO) 0.6 %; EOSINOPHILS # (AUTO) 0.2 10^3/uL (0.0-0.7); EOSINOPHILS % (AUTO) 1.6 %; HGB - HEMOGLOBIN 12.8 g/dL (12.0-16.0); LYMPHOCYTES # (AUTO) 0.9 10^3/uL (1.5-3.5); LYMPHOCYTES % (AUTO) 7.7 %; MEAN CORPUSCULAR HEMOGLOBIN 28.3 pg (27.0-31.0); MEAN CORPUSCULAR VOLUME 85.7 fL (81.0-99.0); MONOCYTES # (AUTO) 1.2 10^3/uL (0.0-1.0); MONOCYTES % (AUTO) 10.2 %; NEUTROPHILS # (AUTO) 9.1 10^3/uL (1.5-6.6); NEUTROPHILS % (AUTO) 79.5 %; PLT - PLATELET COUNT 257 10^3/uL (130-450); RED BLOOD COUNT 4.53 10^6/uL (4.20-5.40); RED CELL DISTRIBUTION WIDTH 14.6 % (12.0-15.0); WHITE BLOOD COUNT 11.5 x10^3/uL (4.8-10.8)
[2019-02-26 09:43] LABS: BILIRUBIN,TOTAL 0.7 mg/dL (0.2-1.0); CALCIUM 8.8 mg/dL (8.5-10.3); CREATININE 0.8 mg/dL (0.4-1.0); TOTAL PROTEIN 7.9 g/dL (6.7-8.2)
[2019-02-26 09:58] LABS: BILIRUBIN,URINE NEGATIVE (NEGATIVE); CLARITY,URINE SL. CLOUDY (CLEAR); GLUCOSE, URINE (UA) NEGATIVE (NEGATIVE); KETONES,URINE (UA) 40 mg/dL (NEGATIVE); LEUKOCYTE ESTERASE, URINE TRACE (NEGATIVE); NITRITE,URINE POSITIVE (NEGATIVE); OCCULT BLOOD,URINE TRACE-INTA (NEGATIVE); PROTEIN,URINE TRACE mg/dL (NEGATIVE); UROBILINOGEN,URINE 0.2 (NORMAL) E.U./dL (NORMAL)
[2019-02-26 09:59] LABS: HCG UR QUAL NEGATIVE
[2019-02-26 10:08] LABS: RBC,URINE 0-5 /HPF (0-5); SQUAMOUS EPITHELIAL CELL,UR MOD Squamous (<= Few)
[2019-02-26 10:09] LABS: BACTERIA,URINE Moderate /HPF (None Seen)
[2019-02-26 10:48] VITALS: BP 108/64
== END 2019-02-26 10:47 | disposition home or self-care (01) ==
LOC: ED 08:34
DX: N12 Tubulo-interstitial nephritis, not specified as acute or chronic (principal)
CPT/HCPCS: 36415; 80053; 81001; 81025; 83605; 83690; 85025; 96361; 96374; 99283; 99284; A9270; 81003; 87086

== ENCOUNTER 2019-05-24 08:14 | Outpatient (CLI) | payer OTHER ==
[2019-05-24 21:23] LABS: TRICHOMONAS VAGINALIS DNA NEGATIVE (NEGATIVE)
[2019-05-25 13:29] LABS: HIV AG/AB 4TH GEN NON-REACTIVE (NON-REACTIVE)
[2019-05-26 10:56] LABS: HSV 1 IGG TYPE SPECIFIC AB <0.90 index; HSV 2 IGG TYPE SPECIFIC AB 2.79 index
== END 2019-05-24 23:59 | disposition home or self-care (01) ==
LOC: LAB.WCP 08:14
PROVIDERS: ATTEND Physician Assistant Medical
DX: Z20.2 Contact with and (suspected) exposure to infections with a predominantly sexual mode of transmission (principal)
CPT/HCPCS: 36415; 81599; 86592; 86695; 86696; 87389; 87491; 87591; 87661

== ENCOUNTER 2022-01-15 08:00 | Outpatient (CLI) | payer OTHER ==
[2022-01-15 14:47] LABS: BASOPHILS # (AUTO) 0.1 10^3/uL (0.0-0.1); BASOPHILS % (AUTO) 0.7 %; EOSINOPHILS # (AUTO) 0.3 10^3/uL (0.0-0.7); EOSINOPHILS % (AUTO) 3.7 %; HGB - HEMOGLOBIN 13.4 g/dL (12.0-16.0); LYMPHOCYTES # (AUTO) 1.6 10^3/uL (1.5-3.5); MEAN CORPUSCULAR HEMOGLOBIN 30.3 pg (27.0-31.0); MEAN CORPUSCULAR HGB CONC 34.4 g/dL (32.0-36.0); MEAN CORPUSCULAR VOLUME 88.2 fL (81.0-99.0); MEAN PLATELET VOLUME 9.1 fL (7.9-10.8); MONOCYTES # (AUTO) 0.8 10^3/uL (0.0-1.0); MONOCYTES % (AUTO) 9.3 %; NEUTROPHILS # (AUTO) 5.8 10^3/uL (1.5-6.6); PLT - PLATELET COUNT 290 10^3/uL (130-450); RED BLOOD COUNT 4.42 10^6/uL (4.20-5.40); RED CELL DISTRIBUTION WIDTH 12.3 % (12.0-15.0); WHITE BLOOD COUNT 8.6 x10^3/uL (4.8-10.8)
[2022-01-16 05:10] LABS: HBsAG SCREEN Negative (Negative); HCV AB <0.1 s/co ratio (0.0-0.9)
[2022-01-16 07:10] LABS: RPR Non Reactive (Non Reactive)
[2022-01-16 08:10] LABS: VARICELLA-ZOSTER AB IGG 1476 index (Immune >165)
[2022-01-17 00:07] LABS: HIV SCREEN 4TH GENERATION Non Reactive (Non Reactive)
== END 2022-01-15 23:59 | disposition home or self-care (01) ==
LOC: LAB 08:00
PROVIDERS: ATTEND Nurse Practitioner Obstetrics & Gynecology
DX: Z36.89 Encounter for other specified antenatal screening (principal)
CPT/HCPCS: 36415; 85025; 86592; 86762; 86787; 86803; 86850; 86900; 86901; 87340; 87389

== ENCOUNTER 2022-03-26 10:31 | Outpatient (CLI) | payer OTHER ==
--- NOTE | 2022-03-26 15:33 | Ultrasound Report ---
PROCEDURE: OB Detailed Eval INDICATIONS: SUPERVISION OF OUTSIDE/PRIOR DATING DATA: Last menstrual period (LMP): 8 20-22. LMP-based estimated date of delivery (KIM): 08/12/2022. First dating scan (date and location): 01/12/2020 to. Estimated date of delivery (KIM) from first dating scan: 08/13/2022. The below data below was generated using the working KIM of 08/13/2022 TECHNIQUE: Real-time scanning was performed of the fetus, with image documentation and biometric measurements. Endovaginal scanning: Not indicated COMPARISON: None. FINDINGS: General: A single living intrauterine gestation is present. Presentation: Transverse Placenta: Placental position is anterior, without previa. Amniotic fluid index: 12.9 cm, normal and is at 34% for gestational age. heart rate: 166 beats per minute. Maternal cervical canal: 5.4 cm long and is closed; normal length is 2.5 cm or more. biometrics: Biparietal diameter: 4.43 cm, 19 weeks, 3 days. Head circumference: 16.79 cm, 19 weeks, 3 days. Abdominal circumference: 14.56 cm, 19 weeks, 6 days. Femur length: 2.7 cm, 19 weeks, 1 day. Estimated gestational age from initial scan: 20 weeks, 0 day. Composite gestational age from present scan: 19 weeks, 4 days. Estimated weight and percentile: 297.6 g, 21.4%. Measurement variability in biometric dating: +/- 10 days from 12-20 weeks gestation, +/- 2 weeks from 20-30 weeks gestation, +/- 3 weeks at 30 weeks gestation or later. Anatomic survey: Neuro: Ventricles are normal at less than 10 mm. Cisterna magna is normal at 3-11 mm. Cerebellum i s normal in size and morphology. Nuchal skin fold: Normal at less than 6 mm between 14 and 20 weeks gestational age. Face: Nose and lips, facial profile are normal. Spine: No evidence for spina bifida. Heart: 4-chambered heart is present, with normal ventricular outflow tracts. Diaphragm: Diaphragm is intact. Stomach: Left-sided stomach is present. Kidneys: No hydronephrosis. Normal is less than 5 mm in 2nd trimester, less than 7 mm in 3rd trimester. Cord: 3 vessel cord has orthotopic insertion. Bladder: Normal in size. Extremities: All 4 extremities are visualized. Right-sided corpus luteum is seen measures 1.7 x 1.2 x 1.7 cm in size. IMPRESSION: 1. Single live intrauterine gestation with fetus in transverse presentation. heart rate is 166 bpm. Normal amount of amniotic fluid with JOSEPH at 34%. Normal growth with diminutive weigh t measures 21.4%. 2. Normal anatomic survey. 3. Right-sided corpus luteum as above. Reviewed by: Sreekanth Ely MD on 03/26/2022 3:32 PM PST Approved by: Sreekanth Ely MD on 03/26/2022 3:32 PM PST Station ID: [id number]
== END 2022-03-26 10:32 | disposition home or self-care (01) ==
LOC: DI 10:31
PROVIDERS: ATTEND Nurse Practitioner Obstetrics & Gynecology
DX: O34.82 Maternal care for other abnormalities of pelvic organs, second trimester (principal); N83.11 Corpus luteum cyst of right ovary; Z3A.19 19 weeks gestation of pregnancy; Z36.89 Encounter for other specified antenatal screening

== ENCOUNTER 2022-04-22 20:37 | Emergency (ER) | payer OTHER ==
[2022-04-22 20:45] VITALS: BP 140/100
[2022-04-22] MEDS ORDERED: cephALEXin 250 MG CAPSULE PO STA (20:52)
--- NOTE | 2022-04-22 20:54 | ED Physician Documentation ---
PD HPI HEENT - Stated complaint Stated Complaint: C+/RT EAR PX - Chief complaint Chief Complaint: Heent - History obtained from History obtained from: Patient - Additional information Additional information: 31-year-old woman at 24 weeks of developed symptomatic COVID 8 days ago and tested positive the next day. 3 days ago went to the urgent care clinic thinking she had a sinus infection. She was prescribed paxlovid which she did not fill. Now 3 days of severe right ear pain. No fevers. 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 : None HEENT: None Psych: None Musculoskeletal: None Derm: None - Past Surgical History Past Surgical History: No - Present Medications Home Medications: Ambulatory Orders Medication Instructions Recorded Confirmed Cefdinir 300 mg PO BID #28 capsule 02/26/19 Ondansetron Odt [Zofran] 4 mg TL Q6H PRN #10 tablet 02/26/19 cephALEXin [Keflex] 500 mg PO Q6H #40 cap 04/22/22 - Allergies Allergies/Adverse Reactions: Allergies Allergy/AdvReac Type Severity Reaction Status Date / Time amoxicillin [From Augmentin] Allergy Unknown Verified 04/22/22 20:40 clavulanic acid Allergy Unknown Verified 04/22/22 20:40 [From Augmentin] Penicillins Allergy Emesis Verified 04/22/22 20:40 dust Allergy Unknown Uncoded 04/22/22 20:40 - Social History Does the pt smoke?: No Smoking Status: Never smoker Does the pt drink ETOH?: Yes - POLST Patient has POLST: No POLST Status: Full Code PD ED PE NORMAL - Vitals Vital signs reviewed: Yes - General General: Alert and oriented X 3 - HEENT HEENT: Other (Severe right otitis media) - Neck Neck: Supple, no meningeal sign, No bony TTP - Neuro Neuro: Alert and oriented X 3, Normal speech - Psych Psych: Normal mood, Normal affect Results - Vitals Vitals: Vital Signs - 24 hr 04/22/22 20:40 Temperature 36.5 C Heart Rate 100 Respiratory 16 Rate Blood Pressure 140/100 H O2 Saturation 100 Oxygen O2 Source Room air PD Medical Decision Making - ED course ED course: 31-year-old woman with otitis media in the setting of and COVID. We will treat with Keflex noting penicillin allergy. Departure - Departure Disposition: 01 Home, Self Care Clinical Impression: ROM (right otitis media) Qualifiers: Otitis media type: suppurative Chronicity: acute Recurrence: non-recurrent Spontaneous tympanic membrane rupture: without spontaneous rupture Qualified Code(s): H66.001 - Acute suppurative otitis media without spontaneous rupture of ear drum, right ear Condition: Good Record reviewed to determine appropriate education?: Yes Instructions: ED Otitis Media Acute Adult Prescriptions: cephALEXin [Keflex] 500 mg PO Q6H #40 cap Comments: Drink plenty fluids. Tylenol as needed for pain. Return for new or worsening symptoms. Follow-up with your doctor in a week for recheck.
== END 2022-04-22 20:59 | disposition home or self-care (01) ==
LOC: ED 20:37
DX: O98.512 Other viral diseases complicating pregnancy, second trimester (principal); U07.1 COVID-19; O99.830 Other infection carrier state complicating pregnancy; H66.001 Acute suppurative otitis media without spontaneous rupture of ear drum, right ear; Z3A.24 24 weeks gestation of pregnancy
CPT/HCPCS: 99282; 99283; A9270

== ENCOUNTER 2022-04-30 10:39 | Outpatient (CLI) | payer OTHER ==
[2022-04-30 11:47] LABS: HCT - HEMATOCRIT 35.8 % (37.0-47.0); HGB - HEMOGLOBIN 11.6 g/dL (12.0-16.0); MEAN CORPUSCULAR HEMOGLOBIN 29.7 pg (27.0-31.0); MEAN CORPUSCULAR HGB CONC 32.4 g/dL (32.0-36.0); MEAN CORPUSCULAR VOLUME 91.8 fL (81.0-99.0); MEAN PLATELET VOLUME 8.4 fL (7.9-10.8); RED BLOOD COUNT 3.9 10^6/uL (4.20-5.40); RED CELL DISTRIBUTION WIDTH 12.2 % (12.0-15.0); WHITE BLOOD COUNT 11.8 x10^3/uL (4.8-10.8)
== END 2022-04-30 10:40 | disposition home or self-care (01) ==
LOC: LAB 10:39
PROVIDERS: ATTEND Nurse Practitioner Obstetrics & Gynecology
DX: Z36.9 Encounter for antenatal screening, unspecified (principal)
CPT/HCPCS: 36415; 82950; 85027

== ENCOUNTER 2022-08-07 10:00 | Outpatient (CLI) | payer OTHER ==
[2022-08-07 10:11] LABS: BASOPHILS # (AUTO) 0.1 10^3/uL (0.0-0.1); BASOPHILS % (AUTO) 0.9 %; EOSINOPHILS # (AUTO) 0.2 10^3/uL (0.0-0.7); HCT - HEMATOCRIT 38.4 % (37.0-47.0); HGB - HEMOGLOBIN 12.9 g/dL (12.0-16.0); LYMPHOCYTES # (AUTO) 2.4 10^3/uL (1.5-3.5); LYMPHOCYTES % (AUTO) 31.6 %; MEAN CORPUSCULAR HEMOGLOBIN 30.4 pg (27.0-31.0); MEAN CORPUSCULAR HGB CONC 33.6 g/dL (32.0-36.0); MEAN CORPUSCULAR VOLUME 90.6 fL (81.0-99.0); MEAN PLATELET VOLUME 10.7 fL (7.9-10.8); MONOCYTES # (AUTO) 0.4 10^3/uL (0.0-1.0); MONOCYTES % (AUTO) 5.7 %; NEUTROPHILS # (AUTO) 4.5 10^3/uL (1.5-6.6); NEUTROPHILS % (AUTO) 59.4 %; PLT - PLATELET COUNT 183 10^3/uL (130-450); RED BLOOD COUNT 4.24 10^6/uL (4.20-5.40); RED CELL DISTRIBUTION WIDTH 13.7 % (12.0-15.0); WHITE BLOOD COUNT 7.6 x10^3/uL (4.8-10.8)
[2022-08-07 10:23] LABS: ALBUMIN 2.7 g/dL (3.2-5.5); BILIRUBIN,TOTAL 0.5 mg/dL (0.2-1.0); CREATININE 1.1 mg/dL (0.4-1.0); POTASSIUM 4.3 mmol/L (3.5-5.0); TOTAL PROTEIN 5.5 g/dL (6.7-8.2)
[2022-08-07 10:50] LABS: CREATININE,URINE 117.3 mg/dL; PROTEIN/CREATININE RATIO,URINE 1.2 (<=0.2)
== END 2022-08-07 10:01 | disposition home or self-care (01) ==
LOC: LAB 10:00
PROVIDERS: ATTEND Nurse Practitioner Obstetrics & Gynecology
DX: R03.0 Elevated blood-pressure reading, without diagnosis of hypertension (principal)
CPT/HCPCS: 36415; 80053; 82570; 84156; 85025

== ENCOUNTER 2022-08-08 18:42 | Inpatient (IN) | payer OTHER ==
[2022-08-08] MEDS ORDERED: ONDANSETRON 4 MG/2 ML VIAL IVP PRN (19:26)
[2022-08-08] MEDS ORDERED: OXYTOCIN 10 UNIT/ML VIAL IM PRN (19:26)
[2022-08-08] MEDS ORDERED: CARBOPROST TROMETHAMINE 250 MCG/ML AMP IM PRN (19:26)
[2022-08-08] MEDS ORDERED: TRANEXAMIC ACID IN NACL 1,000 MG/100 ML BAG IV PRN (19:26)
[2022-08-08] MEDS ORDERED: lidocaine 1% 20 ML MDV ID PRN (19:26)
[2022-08-08] MEDS ORDERED: METHYLERGONOVINE 0.2 MG/ML VIAL IM PRN (19:26)
[2022-08-08] MEDS ORDERED: SODIUM CHLORIDE FLUSH 0.9% 10 ML SYRINGE IVP PRN (19:26)
[2022-08-08] MEDS ORDERED: miSOPROStoL 200 MCG TABLET BC PRN (19:26)
--- NOTE | 2022-08-08 19:33 | HISTORY & PHYSICAL EXAMINATION ---
Admit History - Visit Reason Visit Reason: Other - : 2 Parity: 1 Premature: 0 Ectopic: 0 : 0 Care: positive: [facility] Risk/History: positive: None Complications This : positive: induced HTN Smoking Status: Never smoker - Mother's Labs Mother's Blood Type: positive: A Mother's RH: positive: Positive GBS: positive: Group B Step Negative Rubella Status: positive: Immune Meds/Allgy - Home Medications Home Medications: Ambulatory Orders Medication Instructions Recorded Confirmed Cefdinir 300 mg PO BID #28 capsule 02/26/19 Ondansetron Odt [Zofran] 4 mg TL Q6H PRN #10 tablet 02/26/19 cephALEXin [Keflex] 500 mg PO Q6H #40 cap 04/22/22 - Allergies Allergies/Adverse Reactions: Allergies Allergy/AdvReac Type Severity Reaction Status Date / Time amoxicillin [From Augmentin] Allergy Unknown Verified 04/22/22 20:40 clavulanic acid Allergy Unknown Verified 04/22/22 20:40 [From Augmentin] Penicillins Allergy Emesis Verified 04/22/22 20:40 dust Allergy Unknown Uncoded 04/22/22 20:40 Review of Systems - Constitutional Constitutional: denies: Fatigue, Fever, Chills, Malaise - Eyes Eyes: denies: Blurred vision, Spots in vision, Dipolpia - Cardiovascular Cariovascular: denies: Irregular heart rate, Palpitations, Chest pain, Edema - Respiratory Respiratory: denies: Cough, Wheezing, SOB at rest - Gastrointestinal Gastrointestinal: denies: Constipation, Diarrhea, Nausea, Vomiting - Genitourinary Genitourinary: denies: Dysuria - Musculoskeletal Musculoskeletal: denies: Back pain - Integumentary Integumentary: denies: Rash, Pruritis - Neurological Neurological: denies: Headache - Psychiatric Psychiatric: denies: Depression, Anxiety Physical - Abdominal Exam Contraction Frequency (min/apart): intermittent Contraction Intensity: positive: Mild Uterine Resting Tone: positive: Soft - Monitoring Heart Rate Baseline: 130 Strip Review: positive: Category I - Presentation Presentation: positive: Vertex - Vaginal Exam Membranes: positive: Membranes intact Dilation (in cm): 4 Effacement (%): 80 Station: positive: -1 Cervical Position: positive: Midposition - Speculum Exam Speculum Exam Performed: positive: No Findings: positive: Other Plan for Labor - Plan For Labor I expect patient to be DC'd or transferred within 96 hours.: Yes Plan for Labor: HPI: This 31yo @ 39.3wks gestation by LMP c/w 9.3wk U/S presents to [facility] for medical induction of labor secondary to gestational hypertension. She has been intermittently cas throughout the day today at home. She denies vaginal bleeding or leakage of fluid and reports +FM. She denies NAJERA, visual disturbances, RUQ or epigastric pain. She does have 2+ pitting edema to LE's bilaterally but has experienced this for the past 3-4 weeks. SVE upon arrival 80/-1, midposition, soft and vertex. She has been a [facility] of [facility] for the duration of her which has remained uncomplicated with the exception of new onset gestational hypertension. She has received consistent care. She is supported by her Floyd today. Dating criteria: LMP 11/05/2022 Initial U/S @ 9.3wks c/w LMP dating Serial exams - agree air quality specialist Hx: Term NSVB x 1. SAB x1. Last pap 07/2021-abnormal, will repeat pap . Medical Hx: Anxiety/depression, HSV-2, migraines Surgical Hx: none Family Hx: HTN- father; depression- mother; colon cancer - PGM Meds: PNV, sertraline, sumatriptan, acyclovir Allergies: Penicillin Social: , lives with Floyd. 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 No tobacco, ETOH or recreational drug use. course: A positive, antibody negative Rubella immune, varicella immune Genetic screening - NIPS negative FAS WNL. Posterior placenta, no previa. Size c/w dating (EFW 21.4%tile). 3VC. Glucola 116 COVID-19 vaccine x 3 Influenza vaccine 01/2022 Tdap vaccine 05/2022 GBS negative Physical Exam: Normocephalic, atraumatic Heart RRR w/o M/G/R Lungs CTAB Abdomen gravid, soft, nontender EFW 3000g FHR baseline Contractions palpate mild intermittently with soft resting tone SVE 4/80/-1, midposition. Soft. Vertex. AROM occurred for a small amount of clear fluid. Bilateral LE's 2+ pitting edema Assessment: 31yo @ 39.3wks gestation by LMP c/w 9.3wk U/S Gestational hypertension GBS negative Plan: Admit to [facility] for medical induction of labor Continuous monitoring Repeat PIH labs now-pending Marco PRN. Nitrous oxide PRN. Epidural per maternal request. Anticipate .
[2022-08-08 20:52] LABS: ALBUMIN 3.3 g/dL (3.2-5.5); BILIRUBIN,TOTAL 0.3 mg/dL (0.2-1.0); CALCIUM 8.6 mg/dL (8.5-10.3); CREATININE 0.9 mg/dL (0.4-1.0); TOTAL PROTEIN 6.7 g/dL (6.7-8.2)
[2022-08-08 21:03] LABS: BASOPHILS # (AUTO) 0.1 10^3/uL (0.0-0.1); BASOPHILS % (AUTO) 0.6 %; EOSINOPHILS # (AUTO) 0.2 10^3/uL (0.0-0.7); EOSINOPHILS % (AUTO) 1.7 %; HCT - HEMATOCRIT 38.6 % (37.0-47.0); HGB - HEMOGLOBIN 13.2 g/dL (12.0-16.0); LYMPHOCYTES # (AUTO) 2.7 10^3/uL (1.5-3.5); LYMPHOCYTES % (AUTO) 27.9 %; MEAN CORPUSCULAR HEMOGLOBIN 30.4 pg (27.0-31.0); MEAN CORPUSCULAR HGB CONC 34.2 g/dL (32.0-36.0); MEAN CORPUSCULAR VOLUME 88.9 fL (81.0-99.0); MEAN PLATELET VOLUME 11.1 fL (7.9-10.8); MONOCYTES # (AUTO) 0.8 10^3/uL (0.0-1.0); MONOCYTES % (AUTO) 7.7 %; NEUTROPHILS # (AUTO) 6.1 10^3/uL (1.5-6.6); NEUTROPHILS % (AUTO) 61.8 %; PLT - PLATELET COUNT 204 10^3/uL (130-450); RED BLOOD COUNT 4.34 10^6/uL (4.20-5.40); RED CELL DISTRIBUTION WIDTH 13.8 % (12.0-15.0); WHITE BLOOD COUNT 9.8 x10^3/uL (4.8-10.8)
[2022-08-09 00:51] LABS: PROTEIN/CREATININE RATIO,URINE 2.6 (<=0.2)
--- NOTE | 2022-08-09 02:53 | PROVIDER PROGRESS NOTE ---
Labor Progress Note - Uterine Monitoring Uterine Monitoring Mode: positive: External toco Contraction Frequency (min/apart): 2-6 Contraction Intensity: positive: Moderate to strong Uterine Resting Tone: positive: Soft - Monitoring Monitor Mode: positive: External ultrasound Heart Rate Baseline: 150 Heart Rate Variability: positive: Moderate (6-25 bmp) Accelerations: positive: Present, 15x15 Decelerations: positive: None Strip Review: positive: Category I - Vaginal Exam Dilation (in cm): 6 Effacement (%): 100 Station: 0 Cervical Position: Midposition - Labor Progress Note Labor Progress Note/Additional Text: S: In hands and knees position breathing through contractions and coping well. Her Floyd and jonatan Baca are supportive at the bedside. She continues to deny headache, visual disturbances, RUQ or epigastric pain. O: FHR baseline 150, moderate variability, + accels, no decels Contractions palpate moderate to strong every 2-6 minutes with soft resting tone SVE 6/100/0 and vertex. Continues to leak clear fluid Protein-creatinine ratio elevated (collected clear catch following rupture of membranes) LFTs stable-WNL creatinine improved Platelets stable - WNL A: 31yo @ 39.4wks gestation by LMP c/w 9.3wk U/S Preeclampsia without severe features Active labor FHR Category I GBS negative P: Continue expectant management of actively laboring patient. Continuous monitoring Serial BP monitoring Reviewed patient status and plan of care with cosmetics demonstrator physician who is in agreement with above plan. Anticipate .
--- NOTE | 2022-08-09 07:56 | PROVIDER PROGRESS NOTE ---
Labor Progress Note - Uterine Monitoring Uterine Monitoring Mode: positive: External toco Contraction Frequency (min/apart): 4-8 Contraction Intensity: positive: Strong Uterine Resting Tone: positive: Soft - Monitoring Monitor Mode: positive: External ultrasound Heart Rate Baseline: 135 Heart Rate Variability: positive: Moderate (6-25 bmp) Accelerations: positive: Present, 15x15 Decelerations: positive: None Strip Review: positive: Category I - Vaginal Exam Dilation (in cm): 9 Effacement (%): 100 Station: 1 - Labor Progress Note Labor Progress Note/Additional Text: S: Breathing through contractions and coping well. She has continued to change positions intermittently throughout her labor course. She continues to deny headaches, visual disturbances, RUQ or epigastric pain. She continues to intermittently push with contractions. Her Floyd and jonatan Baca are supportive at the bedside. O: FHR baseline 140s, moderate variability, + accels, no decels Contractions palpate strong every 4-8 minutes with soft resting tone SVE 9/100/+1, vertex A: 31yo @ 39.4wks gestation by LMP c/w 9.3wk U/S Preeclampsia without severe features Active labor FHR Category I GBS negative P: Continue expectant management of actively laboring patient. Continuous monitoring Continue serial BP assessment. Anticipate .
[2022-08-09] MEDS: LACTATED RINGERS 1,000 ML IV SCH ×4 (12:17→22:41)
[2022-08-09] MEDS: OXYTOCIN/SODIUM CHLORIDE 500 ML IV PRN ×2 (12:38→17:02)
[2022-08-09] MEDS: OXYTOCIN/SODIUM CHLORIDE 500 ML IV SCH (12:47)
[2022-08-09] MEDS ORDERED: HYDROCORTISONE 1% CREAM 28 GM TUBE PR PRN (13:13)
[2022-08-09] MEDS ORDERED: WITCH HAZEL/GLYCERIN 1 PAD TOP PRN (13:13)
--- NOTE | 2022-08-09 13:31 | DELIVERY NOTE ---
Delivery Note - Labor Labor: positive: Spontaneous, Augmented by oxytocin - Delivery Method Delivery Method: positive: Spontaneous vaginal delivery - Presentation Presentation: positive: Vertex - Nuchal Cord Nuchal Cord: positive: Present, Reduced - Amniotic Fluid Description Amniotic Fluid Description: positive: Clear - Episiotomy Type Episiotomy Type: positive: None - Laceration Laceration: positive: None - Delivery Outcome Delivery Outcome: positive: Livebirth - [place] : positive: Placed in direct skin contact with mother, Suctioned, Bulb syringe, Stimulated, Warmed, [place] used, Warmer used sex: positive: Female - Cord Cord: positive: 3 vessels - Estimated Blood Loss Estimated Blood Loss (in cc): 50 - Post Delivery Events Post Delivery Events: positive: No post delivery events - Delivery Comments (Free Text/Narrative) Delivery Comments (Free Text/Narrative): Labor: This 31yo @ 39.4wks gestation by LMP c/w 9.3wk U/S presented to [facility] for medical induction of labor secondary to preeclampsia without severe features. Upon arrival she was noted to be 4/80/-1 and vertex with intact membranes. AROM occurred at 1912 for induction of labor and was noted to be a moderate amount of clear fluid. Her blood pressure remained in the mildly elevated range throughout her labor course and she continued to deny headache or visual disturbances. She progressed to c/c/0 and actively pushing at 0924. FHR pattern demonstrated a Category I pattern throughout labor. Secondary to maternal exhaustion, poor maternal pushing effort, and development of a Category II FHR pattern, the manager of broadcast content physician was phoned and presence was requested at the bedside for evaluation for appropriateness of a VAVD. Upon arrival the attending physician recommended initiation of pitocin at 2mU/mL which was initiated for increased strength of contractions, and she pushed with the patient over the course of several contractions to evaluation maternal pushing effort and appropriateness for VAVD. She counseled the patient about her options for management to include continued spontaneous pushing as appropriate advancement of station was achieved, VAVD and delivery. Pt decl ined both VAVD and delivery and spontaneous pushing efforts were resumed. : She progressed to spontaneously deliver a viable female on 08/09/2022 @ 1237. Nuchal cord x 1 was reduced. The was placed on maternal abdomen, stimulated, dried, and placed skin to skin. Secondary to poor tone and lack of respiratory effort the umbilical cord was doubly clamped by CNM and cut by FOB. The was moved to infant warmer for resuscitation (see manager of broadcast content institute director note for details). Apgars were 3/6/7 at 1, 5 and 10 minutes respectively. 3VC. Cord blood was obtained and a cord segment was cut for cord gases (see institute director note for values). Pitocin was administered via IV for hemostasis. Fundal massage and gentle cord traction applied for active management of the third stage. Placenta delivered spontaneously and intact at . EBL 50mL. Fourth stage: Uterine fundus firm and there is no excessive bleeding. The perineum, vagina, and cervix were inspected and noted to be intact. Following initial resuscitative effort of the the infant was moved skin to skin with the patient and was initiated. Both mother and baby were left in stable condition.
[2022-08-09] MEDS: ACETAMINOPHEN 500 MG TABLET PO SCH (13:59)
[2022-08-09] MEDS ORDERED: IBUPROFEN 800 MG TABLET PO SCH (14:00)
--- NOTE | 2022-08-09 15:12 | PROVIDER PROGRESS NOTE ---
Labor Progress Note - Uterine Monitoring Uterine Monitoring Mode: positive: External toco Contraction Frequency (min/apart): 2-4 Contraction Intensity: positive: Strong Uterine Resting Tone: positive: Soft - Monitoring Monitor Mode: positive: External ultrasound Heart Rate Baseline: 150 Heart Rate Variability: positive: Moderate (6-25 bmp) Accelerations: positive: Absent Decelerations: positive: Early, Late, Variable, Intermittent (<50% x20 min) Strip Review: positive: Category II - Vaginal Exam Dilation (in cm): 10 Effacement (%): 100 Station: 1 - Labor Progress Note Labor Progress Note/Additional Text: Patient pushing with contractions and breathing through them with minimal pushing effort secondary to maternal exhaustion. She verbalized feeling like she is too tired to push. Secondary to development of a Category II FHR pattern, the behavioral health consultant physician was requested at the bedside for evaluation of the appropriateness of VAVD. Both the behavioral health consultant physician and myself counseled the patient several times about her options to assist in delivery. The patient declined VAVD and delivery on multiple occasions. She did agree to initiation of pitocin for augmentation to increase force of contractions. Pt continued to decline VAVD and exhibited improved pushing efforts. She requested to continue spontaneous pushing. Spontaneous pushing efforts resumed.
[2022-08-09] MEDS ORDERED: fentaNYL 100 MCG/2 ML VIAL IVP ONE (17:00)
[2022-08-09] MEDS ORDERED: fentaNYL 100 MCG/2 ML VIAL ONE (17:04)
[2022-08-09 17:24] LABS: BASOPHILS % (AUTO) 0.4 %; HCT - HEMATOCRIT 30.7 % (37.0-47.0); HGB - HEMOGLOBIN 10.4 g/dL (12.0-16.0); LYMPHOCYTES % (AUTO) 4.6 %; MEAN CORPUSCULAR HEMOGLOBIN 30.4 pg (27.0-31.0); MEAN CORPUSCULAR HGB CONC 33.9 g/dL (32.0-36.0); MEAN CORPUSCULAR VOLUME 89.8 fL (81.0-99.0); MEAN PLATELET VOLUME 10.6 fL (7.9-10.8); MONOCYTES % (AUTO) 6.4 %; NEUTROPHILS % (AUTO) 87.4 %; PLT - PLATELET COUNT 265 10^3/uL (130-450); RED BLOOD COUNT 3.42 10^6/uL (4.20-5.40); RED CELL DISTRIBUTION WIDTH 14.1 % (12.0-15.0)
[2022-08-09 17:27] LABS: ABNORMAL LYMPHS % (MANUAL) 0 %
[2022-08-09 17:33] LABS: ALBUMIN 2.1 g/dL (3.2-5.5); ALBUMIN/GLOBULIN RATIO 0.8 (1.0-2.2); BILIRUBIN,TOTAL 0.6 mg/dL (0.2-1.0); CALCIUM 7.9 mg/dL (8.5-10.3); CREATININE 1.8 mg/dL (0.4-1.0); POTASSIUM 4.3 mmol/L (3.5-5.0); TOTAL PROTEIN 4.6 g/dL (6.7-8.2)
[2022-08-09 17:49] LABS: BAND NEUTROPHILS % (MANUAL) 7 %; DIFFERENTIAL COMMENT MANUAL DIFFERENTIAL; LYMPHOCYTES # (MANUAL) 2.3 10^3/uL (1.5-3.5); LYMPHOCYTES % (MANUAL) 7 %; MONOCYTES # (MANUAL) 0.3 10^3/uL (0.0-1.0); NEUTROPHILS # (MANUAL) 30.4 10^3/uL (1.5-6.6); PLATELET ESTIMATE, MANUAL NORMAL (130-450,000) (NORMAL); PLATELET MORPHOLOGY NORMAL APPEARANCE (NORMAL); RBC MORPHOLOGY (MULTIPLE) NORMAL APPEARANCE (NORMAL)
--- NOTE | 2022-08-09 18:01 | PROVIDER PROGRESS NOTE ---
Subjective - Subjective Subjective: I was called to the bedside at 1643 with concerns for bleeding when she was up to the bathroom with accompanied dizziness, diaphoresis and auditory changes with an estimated blood loss of 350mL in addition to her 50mL of blood loss immediately . She was moved back to the bed where she was noted to have tachycardia to 160bpm and her uterus was U+3 and deviated to the right. A straight catheter was inserted and 130mL of dark yellow urine was expelled. She reports feeling like she had urinated since delivery but secondary to perineal and urethral edema she reported it was difficult to evaluate for sure. She was given a second bag of IV pitocin, TXA, 800mcg of misoprostol which was chewed and swallowed, and hemabate 250mcg IM x once. Vigorous fundal rub was performed and a large clot was expelled. call center dispatcher physician phoned to evaluate hemorrhage. She presented to the bedside and performed a vaginal, cervical, and uterine exam with noted improved tone and fundus firm at U-1. QBL totalled 1308mL. Hgb 12.3-->10.4 Hct 38.6-->30.7 Plt 204-->265 creatinine 0.9-->1.8 GFR 72-->32 AST 28->65 ALT 18->19 call center dispatcher physician consulted secondary to elevation of creatinine and she recommended indwelling urinary catheter with repeat CBC and CBC in 4 hours. Warren catheter inserted and strict I&O continued. Patient continues to deny headache, visual disturbances, RUQ or epigastric pain. Heart RRR w/o M/G/R, lungs CTAB, abdomen soft and nontender with fundus firm at U-1. Perineum intact, light lochia rubra, bilateral LE's 2+ pitting edema bilaterally. Mood is good. Floyd is supportive at the bedside. Pt currently . Objective - Vital Signs/Intake & Output Vital Signs: Vital Signs x48h Pulse Resp BP 08/09/22 17:44 130/98 H 08/09/22 14:58 106 H 16 155/94 H Intake & Output: Intake & Output 08/06/22 08/07/22 08/08/22 08/09/22 23:59 23:59 23:59 23:59 Intake Total 1600 2760.417 Output Total 400 Balance 1600 2360.417 - Lab Results Fish Bones: 08/09/22 17:14 08/09/22 17:14 Other Labs: Lab Results x24hrs 08/09/22 08/09/22 08/08/22 Range/Units 17:14 17:14 22:30 WBC 33.0 H (4.8-10.8) x10^3/uL RBC 3.42 L (4.20-5.40) 10^6/uL Hgb 10.4 L (12.0-16.0) g/dL Hct 30.7 L (37.0-47.0) % MCV 89.8 (81.0-99.0) fL MCH 30.4 (27.0-31.0) pg MCHC 33.9 (32.0-36.0) g/dL RDW 14.1 (12.0-15.0) % Plt Count 265 (130-450) 10^3/uL MPV 10.6 (7.9-10.8) fL Neut # (Auto) Not Reportable (1.5-6.6) 10^3/uL Lymph # (Auto) Not Reportable (1.5-3.5) 10^3/uL [place] # (Auto) Not Reportable (0.0-1.0) 10^3/uL Eos # (Auto) Not Reportable (0.0-0.7) 10^3/uL Baso # (Auto) Not Reportable (0.0-0.1) 10^3/uL Absolute Nucleated RBC Not Reportable x10^3/uL Total Counted 100 Band Neuts % (Manual) 7 (0 - 10) % Abnorm Lymph % (Manual) 0 % Nucleated RBC % Not Reportable /100WBC Neutrophils # (Manual) 30.4 H (1.5-6.6) 10^3/uL Lymphocytes # (Manual) 2.3 (1.5-3.5) 10^3/uL Monocytes # (Manual) 0.3 (0.0-1.0) 10^3/uL Eosinophils # (Manual) 0.0 (0-0.7) 10^3/uL Basophils # (Manual) 0.0 (0-0.1) 10^3/uL Differential Comment MANUAL DIFFERENTIAL Platelet Estimate NORMAL (130-450,000) (NORMAL) Platelet Morphology NORMAL APPEARANCE (NORMAL) RBC Morph Micro Appear NORMAL APPEARANCE (NORMAL) Sodium 135 (135-145) mmol/L Potassium 4.3 (3.5-5.0) mmol/L Chloride 110 (101-111) mmol/L Carbon Dioxide 13 L (21-32) mmol/L Anion Gap 12.0 (6-13) BUN 22 H (6-20) mg/dL Creatinine 1.8 H (0.4-1.0) mg/dL Estimated GFR (MDRD) 32 L (>89) Glucose 179 H (70-100) mg/dL Calcium 7.9 L (8.5-10.3) mg/dL Total Bilirubin 0.6 (0.2-1.0) mg/dL AST 65 H (10-42) IU/L ALT 19 (10-60) IU/L Alkaline Phosphatase 104 (42-121) IU/L Total Protein 4.6 L (6.7-8.2) g/dL Albumin 2.1 L (3.2-5.5) g/dL Globulin 2.5 (2.1-4.2) g/dL Albumin/Globulin Ratio 0.8 L (1.0-2.2) Urine Creatinine 51.0 mg/dL Ur Total Protein Timed 131 mg/dL Protein/Creatinin Ratio 2.6 H (<=0.2) Blood Type Antibody Screen 08/08/22 08/08/22 08/08/22 Range/Units 20:50 20:25 20:25 WBC 9.8 (4.8-10.8) x10^3/uL RBC 4.34 (4.20-5.40) 10^6/uL Hgb 13.2 (12.0-16.0) g/dL Hct 38.6 (37.0-47.0) % MCV 88.9 (81.0-99.0) fL MCH 30.4 (27.0-31.0) pg MCHC 34.2 (32.0-36.0) g/dL RDW 13.8 (12.0-15.0) % Plt Count 204 (130-450) 10^3/uL MPV 11.1 H (7.9-10.8) fL Neut # (Auto) 6.1 (1.5-6.6) 10^3/uL Lymph # (Auto) 2.7 (1.5-3.5) 10^3/uL [place] # (Auto) 0.8 (0.0-1.0) 10^3/uL Eos # (Auto) 0.2 (0.0-0.7) 10^3/uL Baso # (Auto) 0.1 (0.0-0.1) 10^3/uL Absolute Nucleated RBC 0.00 x10^3/uL Total Counted Band Neuts % (Manual) (0 - 10) % Abnorm Lymph % (Manual) % Nucleated RBC % 0.0 /100WBC Neutrophils # (Manual) (1.5-6.6) 10^3/uL Lymphocytes # (Manual) (1.5-3.5) 10^3/uL Monocytes # (Manual) (0.0-1.0) 10^3/uL Eosinophils # (Manual) (0-0.7) 10^3/uL Basophils # (Manual) (0-0.1) 10^3/uL Differential Comment Platelet Estimate (NORMAL) Platelet Morphology (NORMAL) RBC Morph Micro Appear (NORMAL) Sodium 137 (135-145) mmol/L Potassium 4.0 (3.5-5.0) mmol/L Chloride 103 (101-111) mmol/L Carbon Dioxide 19 L (21-32) mmol/L Anion Gap 15.0 H (6-13) BUN 14 (6-20) mg/dL Creatinine 0.9 (0.4-1.0) mg/dL Estimated GFR (MDRD) 72 L (>89) Glucose 69 L (70-100) mg/dL Calcium 8.6 (8.5-10.3) mg/dL Total Bilirubin 0.3 (0.2-1.0) mg/dL AST 28 (10-42) IU/L ALT 18 (10-60) IU/L Alkaline Phosphatase 153 H (42-121) IU/L Total Protein 6.7 (6.7-8.2) g/dL Albumin 3.3 (3.2-5.5) g/dL Globulin 3.4 (2.1-4.2) g/dL Albumin/Globulin Ratio 1.0 (1.0-2.2) Urine Creatinine mg/dL Ur Total Protein Timed mg/dL Protein/Creatinin Ratio (<=0.2) Blood Type A POSITIVE Antibody Screen NEGATIVE
--- NOTE | 2022-08-09 18:37 | PROVIDER PROGRESS NOTE ---
Subjective - Subjective Subjective: Secondary to increasing severity of preeclampsia and declining kidney function, I have handed care to the accounting policy consultant physician Dr. Lopez who accepts medical management of the patient at this time. Objective - Vital Signs/Intake & Output Vital Signs: Vital Signs x48h Pulse Resp BP 08/09/22 17:44 130/98 H 08/09/22 14:58 106 H 16 155/94 H Intake & Output: Intake & Output 08/06/22 08/07/22 08/08/22 08/09/22 23:59 23:59 23:59 23:59 Intake Total 1600 2760.417 Output Total 400 Balance 1600 2360.417 - Lab Results Fish Bones: 08/09/22 17:14 08/09/22 17:14 Other Labs: Lab Results x24hrs 08/09/22 08/09/22 08/08/22 Range/Units 17:14 17:14 22:30 WBC 33.0 H (4.8-10.8) x10^3/uL RBC 3.42 L (4.20-5.40) 10^6/uL Hgb 10.4 L (12.0-16.0) g/dL Hct 30.7 L (37.0-47.0) % MCV 89.8 (81.0-99.0) fL MCH 30.4 (27.0-31.0) pg MCHC 33.9 (32.0-36.0) g/dL RDW 14.1 (12.0-15.0) % Plt Count 265 (130-450) 10^3/uL MPV 10.6 (7.9-10.8) fL Neut # (Auto) Not Reportable (1.5-6.6) 10^3/uL Lymph # (Auto) Not Reportable (1.5-3.5) 10^3/uL [place] # (Auto) Not Reportable (0.0-1.0) 10^3/uL Eos # (Auto) Not Reportable (0.0-0.7) 10^3/uL Baso # (Auto) Not Reportable (0.0-0.1) 10^3/uL Absolute Nucleated RBC Not Reportable x10^3/uL Total Counted 100 Band Neuts % (Manual) 7 (0 - 10) % Abnorm Lymph % (Manual) 0 % Nucleated RBC % Not Reportable /100WBC Neutrophils # (Manual) 30.4 H (1.5-6.6) 10^3/uL Lymphocytes # (Manual) 2.3 (1.5-3.5) 10^3/uL Monocytes # (Manual) 0.3 (0.0-1.0) 10^3/uL Eosinophils # (Manual) 0.0 (0-0.7) 10^3/uL Basophils # (Manual) 0.0 (0-0.1) 10^3/uL Differential Comment MANUAL DIFFERENTIAL Platelet Estimate NORMAL (130-450,000) (NORMAL) Platelet Morphology NORMAL APPEARANCE (NORMAL) RBC Morph Micro Appear NORMAL APPEARANCE (NORMAL) Sodium 135 (135-145) mmol/L Potassium 4.3 (3.5-5.0) mmol/L Chloride 110 (101-111) mmol/L Carbon Dioxide 13 L (21-32) mmol/L Anion Gap 12.0 (6-13) BUN 22 H (6-20) mg/dL Creatinine 1.8 H (0.4-1.0) mg/dL Estimated GFR (MDRD) 32 L (>89) Glucose 179 H (70-100) mg/dL Calcium 7.9 L (8.5-10.3) mg/dL Total Bilirubin 0.6 (0.2-1.0) mg/dL AST 65 H (10-42) IU/L ALT 19 (10-60) IU/L Alkaline Phosphatase 104 (42-121) IU/L Total Protein 4.6 L (6.7-8.2) g/dL Albumin 2.1 L (3.2-5.5) g/dL Globulin 2.5 (2.1-4.2) g/dL Albumin/Globulin Ratio 0.8 L (1.0-2.2) Urine Creatinine 51.0 mg/dL Ur Total Protein Timed 131 mg/dL Protein/Creatinin Ratio 2.6 H (<=0.2) Blood Type Antibody Screen 08/08/22 08/08/22 08/08/22 Range/Units 20:50 20:25 20:25 WBC 9.8 (4.8-10.8) x10^3/uL RBC 4.34 (4.20-5.40) 10^6/uL Hgb 13.2 (12.0-16.0) g/dL Hct 38.6 (37.0-47.0) % MCV 88.9 (81.0-99.0) fL MCH 30.4 (27.0-31.0) pg MCHC 34.2 (32.0-36.0) g/dL RDW 13.8 (12.0-15.0) % Plt Count 204 (130-450) 10^3/uL MPV 11.1 H (7.9-10.8) fL Neut # (Auto) 6.1 (1.5-6.6) 10^3/uL Lymph # (Auto) 2.7 (1.5-3.5) 10^3/uL [place] # (Auto) 0.8 (0.0-1.0) 10^3/uL Eos # (Auto) 0.2 (0.0-0.7) 10^3/uL Baso # (Auto) 0.1 (0.0-0.1) 10^3/uL Absolute Nucleated RBC 0.00 x10^3/uL Total Counted Band Neuts % (Manual) (0 - 10) % Abnorm Lymph % (Manual) % Nucleated RBC % 0.0 /100WBC Neutrophils # (Manual) (1.5-6.6) 10^3/uL Lymphocytes # (Manual) (1.5-3.5) 10^3/uL Monocytes # (Manual) (0.0-1.0) 10^3/uL Eosinophils # (Manual) (0-0.7) 10^3/uL Basophils # (Manual) (0-0.1) 10^3/uL Differential Comment Platelet Estimate (NORMAL) Platelet Morphology (NORMAL) RBC Morph Micro Appear (NORMAL) Sodium 137 (135-145) mmol/L Potassium 4.0 (3.5-5.0) mmol/L Chloride 103 (101-111) mmol/L Carbon Dioxide 19 L (21-32) mmol/L Anion Gap 15.0 H (6-13) BUN 14 (6-20) mg/dL Creatinine 0.9 (0.4-1.0) mg/dL Estimated GFR (MDRD) 72 L (>89) Glucose 69 L (70-100) mg/dL Calcium 8.6 (8.5-10.3) mg/dL Total Bilirubin 0.3 (0.2-1.0) mg/dL AST 28 (10-42) IU/L ALT 18 (10-60) IU/L Alkaline Phosphatase 153 H (42-121) IU/L Total Protein 6.7 (6.7-8.2) g/dL Albumin 3.3 (3.2-5.5) g/dL Globulin 3.4 (2.1-4.2) g/dL Albumin/Globulin Ratio 1.0 (1.0-2.2) Urine Creatinine mg/dL Ur Total Protein Timed mg/dL Protein/Creatinin Ratio (<=0.2) Blood Type A POSITIVE Antibody Screen NEGATIVE
[2022-08-09] MEDS ORDERED: LABETALOL 20 MG/4 ML SYRINGE IVP ONE (19:17)
[2022-08-09] MEDS: LABETALOL 100 MG TABLET PO SCH (19:42)
[2022-08-09] MEDS: LOPERAMIDE 2 MG CAPSULE PO PRN (19:42)
[2022-08-09] MEDS: NIFEdipine ER 30 MG TABLET PO SCH (19:42)
[2022-08-09] MEDS ORDERED: LACTATED RINGERS 1,000 ML IV SCH (20:00)
[2022-08-09 22:18] LABS: BASOPHILS % (AUTO) 0.3 %; HCT - HEMATOCRIT 23.7 % (37.0-47.0); HGB - HEMOGLOBIN 8.2 g/dL (12.0-16.0); LYMPHOCYTES % (AUTO) 6.4 %; MEAN CORPUSCULAR HEMOGLOBIN 31.1 pg (27.0-31.0); MEAN CORPUSCULAR HGB CONC 34.6 g/dL (32.0-36.0); MEAN CORPUSCULAR VOLUME 89.8 fL (81.0-99.0); MEAN PLATELET VOLUME 10.8 fL (7.9-10.8); MONOCYTES % (AUTO) 4.1 %; NEUTROPHILS % (AUTO) 88.3 %; PLT - PLATELET COUNT 192 10^3/uL (130-450); RED BLOOD COUNT 2.64 10^6/uL (4.20-5.40); RED CELL DISTRIBUTION WIDTH 14.1 % (12.0-15.0); WHITE BLOOD COUNT 29.1 x10^3/uL (4.8-10.8)
[2022-08-09 22:22] LABS: ABNORMAL LYMPHS % (MANUAL) 0 %
[2022-08-09 22:29] LABS: ALBUMIN 1.8 g/dL (3.2-5.5); ALBUMIN/GLOBULIN RATIO 0.8 (1.0-2.2); BILIRUBIN,TOTAL 0.4 mg/dL (0.2-1.0); CALCIUM 7.6 mg/dL (8.5-10.3); CREATININE 1.5 mg/dL (0.4-1.0); POTASSIUM 4.4 mmol/L (3.5-5.0)
[2022-08-09 22:42] LABS: BAND NEUTROPHILS % (MANUAL) 2 %; LYMPHOCYTES # (MANUAL) 0.9 10^3/uL (1.5-3.5); LYMPHOCYTES % (MANUAL) 3 %; MONOCYTES # (MANUAL) 0.6 10^3/uL (0.0-1.0); NEUTROPHILS # (MANUAL) 27.6 10^3/uL (1.5-6.6); PLATELET ESTIMATE, MANUAL NORMAL (130-450,000) (NORMAL); PLATELET MORPHOLOGY NORMAL APPEARANCE (NORMAL); RBC MORPHOLOGY (MULTIPLE) NORMAL APPEARANCE (NORMAL)
[2022-08-09 22:43] LABS: DIFFERENTIAL COMMENT MANUAL DIFFERENTIAL
--- NOTE | 2022-08-09 22:55 | PROVIDER PROGRESS NOTE ---
Subjective - Prog Note Date Prog Note Date: 08/09/22 Prog Note Time: 22:30 - Subjective Pt reports feeling: Improved Objective - Vital Signs/Intake & Output Reviewed Vital Signs: Yes Vital Signs: Vital Signs x48h Temp Pulse Resp BP Pulse Ox 08/09/22 21:36 110 H 18 144/68 H 99 08/09/22 20:30 99.0 F 125 H 18 144/60 H 08/09/22 19:14 150/102 H 08/09/22 17:44 130/98 H 08/09/22 14:58 106 H 16 155/94 H Intake & Output: Intake & Output 08/06/22 08/07/22 08/08/22 08/09/22 23:59 23:59 23:59 23:59 Intake Total 1600 4177.084 Output Total 430 Balance 1600 3747.084 - Lab Results Fish Bones: 08/09/22 21:59 08/09/22 21:59 Other Labs: Lab Results x24hrs 08/09/22 08/09/22 08/09/22 Range/Units 21:59 21:59 17:14 WBC 29.1 H (4.8-10.8) x10^3/uL RBC 2.64 L (4.20-5.40) 10^6/uL Hgb 8.2 L (12.0-16.0) g/dL Hct 23.7 L (37.0-47.0) % MCV 89.8 (81.0-99.0) fL MCH 31.1 H (27.0-31.0) pg MCHC 34.6 (32.0-36.0) g/dL RDW 14.1 (12.0-15.0) % Plt Count 192 (130-450) 10^3/uL MPV 10.8 (7.9-10.8) fL Neut # (Auto) Not Reportable Lymph # (Auto) Not Reportable [place] # (Auto) Not Reportable Eos # (Auto) Not Reportable Baso # (Auto) Not Reportable Absolute Nucleated RBC Not Reportable Total Counted 100 Band Neuts % (Manual) 2 (0 - 10) % Abnorm Lymph % (Manual) 0 % Nucleated RBC % Not Reportable Neutrophils # (Manual) 27.6 H (1.5-6.6) 10^3/uL Lymphocytes # (Manual) 0.9 L (1.5-3.5) 10^3/uL Monocytes # (Manual) 0.6 (0.0-1.0) 10^3/uL Eosinophils # (Manual) 0.0 (0-0.7) 10^3/uL Basophils # (Manual) 0.0 (0-0.1) 10^3/uL Differential Comment MANUAL DIFFERENTIAL Platelet Estimate NORMAL (130-450,000) (NORMAL) Platelet Morphology NORMAL APPEARANCE (NORMAL) RBC Morph Micro Appear NORMAL APPEARANCE (NORMAL) Sodium 132 L 135 (135-145) mmol/L Potassium 4.4 4.3 (3.5-5.0) mmol/L Chloride 105 110 (101-111) mmol/L Carbon Dioxide 18 L 13 L (21-32) mmol/L Anion Gap 9.0 12.0 (6-13) BUN 21 H 22 H (6-20) mg/dL Creatinine 1.5 H 1.8 H (0.4-1.0) mg/dL Estimated GFR (MDRD) 40 L 32 L (>89) Glucose 116 H 179 H (70-100) mg/dL Calcium 7.6 L 7.9 L (8.5-10.3) mg/dL Total Bilirubin 0.4 0.6 (0.2-1.0) mg/dL AST 69 H 65 H (10-42) IU/L ALT 22 19 (10-60) IU/L Alkaline Phosphatase 84 104 (42-121) IU/L Total Protein 4.0 L 4.6 L (6.7-8.2) g/dL Albumin 1.8 L 2.1 L (3.2-5.5) g/dL Globulin 2.2 2.5 (2.1-4.2) g/dL Albumin/Globulin Ratio 0.8 L 0.8 L (1.0-2.2) Urine Creatinine mg/dL Ur Total Protein Timed mg/dL Protein/Creatinin Ratio (<=0.2) 08/09/22 08/08/22 Range/Units 17:14 22:30 WBC 33.0 H (4.8-10.8) x10^3/uL RBC 3.42 L (4.20-5.40) 10^6/uL Hgb 10.4 L (12.0-16.0) g/dL Hct 30.7 L (37.0-47.0) % MCV 89.8 (81.0-99.0) fL MCH 30.4 (27.0-31.0) pg MCHC 33.9 (32.0-36.0) g/dL RDW 14.1 (12.0-15.0) % Plt Count 265 (130-450) 10^3/uL MPV 10.6 (7.9-10.8) fL Neut # (Auto) Not Reportable Lymph # (Auto) Not Reportable [place] # (Auto) Not Reportable Eos # (Auto) Not Reportable Baso # (Auto) Not Reportable Absolute Nucleated RBC Not Reportable Total Counted 100 Band Neuts % (Manual) 7 (0 - 10) % Abnorm Lymph % (Manual) 0 % Nucleated RBC % Not Reportable Neutrophils # (Manual) 30.4 H (1.5-6.6) 10^3/uL Lymphocytes # (Manual) 2.3 (1.5-3.5) 10^3/uL Monocytes # (Manual) 0.3 (0.0-1.0) 10^3/uL Eosinophils # (Manual) 0.0 (0-0.7) 10^3/uL Basophils # (Manual) 0.0 (0-0.1) 10^3/uL Differential Comment MANUAL DIFFERENTIAL Platelet Estimate NORMAL (130-450,000) (NORMAL) Platelet Morphology NORMAL APPEARANCE (NORMAL) RBC Morph Micro Appear NORMAL APPEARANCE (NORMAL) Sodium (135-145) mmol/L Potassium (3.5-5.0) mmol/L Chloride (101-111) mmol/L Carbon Dioxide (21-32) mmol/L Anion Gap (6-13) BUN (6-20) mg/dL Creatinine (0.4-1.0) mg/dL Estimated GFR (MDRD) (>89) Glucose (70-100) mg/dL Calcium (8.5-10.3) mg/dL Total Bilirubin (0.2-1.0) mg/dL AST (10-42) IU/L ALT (10-60) IU/L Alkaline Phosphatase (42-121) IU/L Total Protein (6.7-8.2) g/dL Albumin (3.2-5.5) g/dL Globulin (2.1-4.2) g/dL Albumin/Globulin Ratio (1.0-2.2) Urine Creatinine 51.0 mg/dL Ur Total Protein Timed 131 mg/dL Protein/Creatinin Ratio 2.6 H (<=0.2) Assessment/Plan - Problem List (1) Preeclampsia Impression: 31yo s/p today at 39.4w PPD#0 1237 following IOL for preeclampsia - S/p PPH, now stable - Anemia due to PPH, plan for iron infusion tomorrow - Preeclampsia diagnosed with PCR 2.6 on admission yesterday, was previously GHTN diagnosed this week. AST/ALT: 28/18; 65/19; 69/22. Cr elevated, checked after PPH 1700 and was 1.8. Rechecked 2200 and decreasing to 1.5. UOP increasing, ~25cc/h. She has received 500cc bolus x2. Continue IVF 75cc/h. Started labetalol 100mg BID and nifedipine 30mg XR. Continue to monitor BP and titrate antihypertensives. Qualifiers: Trimester: third trimester Qualified Code(s): O14.93 - Unspecified pre- eclampsia, third trimester
[2022-08-10] MEDS: ACETAMINOPHEN 500 MG TABLET PO SCH ×3 (00:09→16:50)
[2022-08-10 00:36] LABS: CREATININE,URINE 148.5 mg/dL; PROTEIN/CREATININE RATIO,URINE 0.1 (<=0.2)
[2022-08-10] MEDS: LOPERAMIDE 2 MG CAPSULE PO PRN (03:13)
[2022-08-10 05:58] LABS: BASOPHILS % (AUTO) 0.3 %; HCT - HEMATOCRIT 20.7 % (37.0-47.0); LYMPHOCYTES % (AUTO) 11.2 %; MEAN CORPUSCULAR HEMOGLOBIN 30.2 pg (27.0-31.0); MEAN CORPUSCULAR HGB CONC 33.8 g/dL (32.0-36.0); MEAN CORPUSCULAR VOLUME 89.2 fL (81.0-99.0); MEAN PLATELET VOLUME 10.3 fL (7.9-10.8); MONOCYTES % (AUTO) 5.8 %; PLT - PLATELET COUNT 170 10^3/uL (130-450); RED BLOOD COUNT 2.32 10^6/uL (4.20-5.40); RED CELL DISTRIBUTION WIDTH 14.2 % (12.0-15.0); WHITE BLOOD COUNT 25.7 x10^3/uL (4.8-10.8)
[2022-08-10] MEDS: LACTATED RINGERS 1,000 ML IV SCH ×3 (06:02→13:01)
[2022-08-10 06:13] LABS: ALBUMIN 1.9 g/dL (3.2-5.5); ALBUMIN/GLOBULIN RATIO 0.9 (1.0-2.2); BILIRUBIN,TOTAL 0.3 mg/dL (0.2-1.0); CALCIUM 7.6 mg/dL (8.5-10.3); CREATININE 1.2 mg/dL (0.4-1.0); POTASSIUM 4.4 mmol/L (3.5-5.0); TOTAL PROTEIN 4.1 g/dL (6.7-8.2)
[2022-08-10 06:14] LABS: ABNORMAL LYMPHS % (MANUAL) 0 %
[2022-08-10] MEDS: DOCUSATE SODIUM 100 MG CAPSULE PO SCH ×2 (06:18→09:48)
[2022-08-10 06:37] LABS: BAND NEUTROPHILS % (MANUAL) 5 %; DIFFERENTIAL COMMENT MANUAL DIFFERENTIAL; LYMPHOCYTES # (MANUAL) 2.3 10^3/uL (1.5-3.5); LYMPHOCYTES % (MANUAL) 9 %; MONOCYTES # (MANUAL) 0.8 10^3/uL (0.0-1.0); NEUTROPHILS # (MANUAL) 22.6 10^3/uL (1.5-6.6); PLATELET ESTIMATE, MANUAL NORMAL (130-450,000) (NORMAL); PLATELET MORPHOLOGY NORMAL APPEARANCE (NORMAL); RBC MORPHOLOGY (MULTIPLE) NORMAL APPEARANCE (NORMAL); WBC MORPHOLOGY (MULTIPLE) NORMAL APPEARANCE (NORMAL)
[2022-08-10] MEDS: LABETALOL 100 MG TABLET PO SCH ×2 (08:09→20:51)
[2022-08-10] MEDS: NIFEdipine ER 30 MG TABLET PO SCH (09:15)
[2022-08-10] MEDS: SODIUM CHLORIDE FLUSH 0.9% 10 ML SYRINGE IVP SCH ×5 (09:24→20:51)
[2022-08-10] MEDS: LACTATED RINGERS 500 ML IV SCH ×8 (09:25→13:04)
[2022-08-10] MEDS ORDERED: FERRIC GLUCONATE 125 MG in SODIUM CHLORIDE 0.9% 100ML 100 ML IV SCH (10:00)
--- NOTE | 2022-08-10 10:06 | PROVIDER PROGRESS NOTE ---
Subjective - Prog Note Date Prog Note Date: 08/10/22 Prog Note Time: 10:00 - Subjective Pt reports feeling: Improved Subjective: Comfortable. Appropriate lochia. She did have PPH ~1000cc yesterday. We reviewed her Hgb 7.0. Iron infusing now. She would like to see how she feels today and currently declines blood transfusion. OOB a few times, denies lightheadedness. Denies headaches, visual changes. well. Mood is good. Objective - Vital Signs/Intake & Output Reviewed Vital Signs: Yes Vital Signs: Vital Signs x48h Temp Pulse Resp BP Pulse Ox 08/10/22 08:18 97.9 F 98 18 128/75 08/10/22 05:59 98.1 F 97 16 136/71 H 100 Intake & Output: Intake & Output 08/07/22 08/08/22 08/09/22 08/10/22 23:59 23:59 23:59 23:59 Intake Total 1600 4177.084 1302.25 Output Total 565 2310 Balance 1600 3612.084 -1007.75 - Objective General Appearance: positive: No acute distress Eyes Bilateral: positive: EOMI Respiratory: positive: No respiratory distress Skin: positive: Color nml Extremities: positive: Non-tender, Pedal edema Neurologic/Psychiatric: positive: Oriented x3 - Lab Results Fish Bones: 08/10/22 05:43 08/10/22 05:43 Other Labs: Lab Results x24hrs 08/10/22 08/10/22 08/10/22 Range/Units 05:43 05:43 00:20 WBC 25.7 H (4.8-10.8) x10^3/uL RBC 2.32 L (4.20-5.40) 10^6/uL Hgb 7.0 L* (12.0-16.0) g/dL Hct 20.7 L (37.0-47.0) % MCV 89.2 (81.0-99.0) fL MCH 30.2 (27.0-31.0) pg MCHC 33.8 (32.0-36.0) g/dL RDW 14.2 (12.0-15.0) % Plt Count 170 (130-450) 10^3/uL MPV 10.3 (7.9-10.8) fL Neut # (Auto) Not Reportable Lymph # (Auto) Not Reportable [place] # (Auto) Not Reportable Eos # (Auto) Not Reportable Baso # (Auto) Not Reportable Absolute Nucleated RBC Not Reportable Total Counted 100 Band Neuts % (Manual) 5 (0 - 10) % Abnorm Lymph % (Manual) 0 % Nucleated RBC % Not Reportable Neutrophils # (Manual) 22.6 H (1.5-6.6) 10^3/uL Lymphocytes # (Manual) 2.3 (1.5-3.5) 10^3/uL Monocytes # (Manual) 0.8 (0.0-1.0) 10^3/uL Eosinophils # (Manual) 0.0 (0-0.7) 10^3/uL Basophils # (Manual) 0.0 (0-0.1) 10^3/uL Differential Comment MANUAL DIFFERENTIAL WBC Morphology NORMAL APPEARANCE (NORMAL) Platelet Estimate NORMAL (130-450,000) (NORMAL) Platelet Morphology NORMAL APPEARANCE (NORMAL) RBC Morph Micro Appear NORMAL APPEARANCE (NORMAL) Sodium 133 L (135-145) mmol/L Potassium 4.4 (3.5-5.0) mmol/L Chloride 108 (101-111) mmol/L Carbon Dioxide 19 L (21-32) mmol/L Anion Gap 6.0 (6-13) BUN 22 H (6-20) mg/dL Creatinine 1.2 H (0.4-1.0) mg/dL Estimated GFR (MDRD) 52 L (>89) Glucose 86 (70-100) mg/dL Calcium 7.6 L (8.5-10.3) mg/dL Total Bilirubin 0.3 (0.2-1.0) mg/dL AST 71 H (10-42) IU/L ALT 24 (10-60) IU/L Alkaline Phosphatase 75 (42-121) IU/L Total Protein 4.1 L (6.7-8.2) g/dL Albumin 1.9 L (3.2-5.5) g/dL Globulin 2.2 (2.1-4.2) g/dL Albumin/Globulin Ratio 0.9 L (1.0-2.2) Urine Creatinine 148.5 mg/dL Ur Total Protein Timed 22 mg/dL Protein/Creatinin Ratio 0.1 (<=0.2) 05/26/23 05/26/23 05/26/23 Range/Units 21:59 21:59 17:14 WBC 29.1 H (4.8-10.8) x10^3/uL RBC 2.64 L (4.20-5.40) 10^6/uL Hgb 8.2 L (12.0-16.0) g/dL Hct 23.7 L (37.0-47.0) % MCV 89.8 (81.0-99.0) fL MCH 31.1 H (27.0-31.0) pg MCHC 34.6 (32.0-36.0) g/dL RDW 14.1 (12.0-15.0) % Plt Count 192 (130-450) 10^3/uL MPV 10.8 (7.9-10.8) fL Neut # (Auto) Not Reportable Lymph # (Auto) Not Reportable [place] # (Auto) Not Reportable Eos # (Auto) Not Reportable Baso # (Auto) Not Reportable Absolute Nucleated RBC Not Reportable Total Counted 100 Band Neuts % (Manual) 2 (0 - 10) % Abnorm Lymph % (Manual) 0 % Nucleated RBC % Not Reportable Neutrophils # (Manual) 27.6 H (1.5-6.6) 10^3/uL Lymphocytes # (Manual) 0.9 L (1.5-3.5) 10^3/uL Monocytes # (Manual) 0.6 (0.0-1.0) 10^3/uL Eosinophils # (Manual) 0.0 (0-0.7) 10^3/uL Basophils # (Manual) 0.0 (0-0.1) 10^3/uL Differential Comment MANUAL DIFFERENTIAL WBC Morphology (NORMAL) Platelet Estimate NORMAL (130-450,000) (NORMAL) Platelet Morphology NORMAL APPEARANCE (NORMAL) RBC Morph Micro Appear NORMAL APPEARANCE (NORMAL) Sodium 132 L 135 (135-145) mmol/L Potassium 4.4 4.3 (3.5-5.0) mmol/L Chloride 105 110 (101-111) mmol/L Carbon Dioxide 18 L 13 L (21-32) mmol/L Anion Gap 9.0 12.0 (6-13) BUN 21 H 22 H (6-20) mg/dL Creatinine 1.5 H 1.8 H (0.4-1.0) mg/dL Estimated GFR (MDRD) 40 L 32 L (>89) Glucose 116 H 179 H (70-100) mg/dL Calcium 7.6 L 7.9 L (8.5-10.3) mg/dL Total Bilirubin 0.4 0.6 (0.2-1.0) mg/dL AST 69 H 65 H (10-42) IU/L ALT 22 19 (10-60) IU/L Alkaline Phosphatase 84 104 (42-121) IU/L Total Protein 4.0 L 4.6 L (6.7-8.2) g/dL Albumin 1.8 L 2.1 L (3.2-5.5) g/dL Globulin 2.2 2.5 (2.1-4.2) g/dL Albumin/Globulin Ratio 0.8 L 0.8 L (1.0-2.2) Urine Creatinine mg/dL Ur Total Protein Timed mg/dL Protein/Creatinin Ratio (<=0.2) 05/26/23 Range/Units 17:14 WBC 33.0 H (4.8-10.8) x10^3/uL RBC 3.42 L (4.20-5.40) 10^6/uL Hgb 10.4 L (12.0-16.0) g/dL Hct 30.7 L (37.0-47.0) % MCV 89.8 (81.0-99.0) fL MCH 30.4 (27.0-31.0) pg MCHC 33.9 (32.0-36.0) g/dL RDW 14.1 (12.0-15.0) % Plt Count 265 (130-450) 10^3/uL MPV 10.6 (7.9-10.8) fL Neut # (Auto) Not Reportable Lymph # (Auto) Not Reportable [place] # (Auto) Not Reportable Eos # (Auto) Not Reportable Baso # (Auto) Not Reportable Absolute Nucleated RBC Not Reportable Total Counted 100 Band Neuts % (Manual) 7 (0 - 10) % Abnorm Lymph % (Manual) 0 % Nucleated RBC % Not Reportable Neutrophils # (Manual) 30.4 H (1.5-6.6) 10^3/uL Lymphocytes # (Manual) 2.3 (1.5-3.5) 10^3/uL Monocytes # (Manual) 0.3 (0.0-1.0) 10^3/uL Eosinophils # (Manual) 0.0 (0-0.7) 10^3/uL Basophils # (Manual) 0.0 (0-0.1) 10^3/uL Differential Comment MANUAL DIFFERENTIAL WBC Morphology (NORMAL) Platelet Estimate NORMAL (130-450,000) (NORMAL) Platelet Morphology NORMAL APPEARANCE (NORMAL) RBC Morph Micro Appear NORMAL APPEARANCE (NORMAL) Sodium (135-145) mmol/L Potassium (3.5-5.0) mmol/L Chloride (101-111) mmol/L Carbon Dioxide (21-32) mmol/L Anion Gap (6-13) BUN (6-20) mg/dL Creatinine (0.4-1.0) mg/dL Estimated GFR (MDRD) (>89) Glucose (70-100) mg/dL Calcium (8.5-10.3) mg/dL Total Bilirubin (0.2-1.0) mg/dL AST (10-42) IU/L ALT (10-60) IU/L Alkaline Phosphatase (42-121) IU/L Total Protein (6.7-8.2) g/dL Albumin (3.2-5.5) g/dL Globulin (2.1-4.2) g/dL Albumin/Globulin Ratio (1.0-2.2) Urine Creatinine mg/dL Ur Total Protein Timed mg/dL Protein/Creatinin Ratio (<=0.2) Assessment/Plan - Problem List (1) care following vaginal delivery Impression: Routine care, baby svitlana Farmer doing well rooming with mother. (2) Preeclampsia Impression: 31yo s/p 08/09/22 following IOL for preeclampsia, PPD#1 - BP now 128/75. Continue labetalol 100mg BID and nifedipine 30mg qd. Adding furosemide 20mg daily. - Creatinine improved 1.2 (1.8) and UOP adequate - Continue to monitor LFTs 71/24 - CBC, CMP in am - PCR repeat 0.1 - Continue to monitor and remain admitted, reevaluate tomorrow - Plan to discontinue Warren catheter and IVF this afternoon Qualifiers: Trimester: third trimester Qualified Code(s): O14.93 - Unspecified pre- eclampsia, third trimester (3) Anemia in , delivered, current hospitalization Impression: - PPH yesterday and Hgb 7.0 today. Ferrlicit iron infusion today and tomorrow. Declines blood transfusion for now, monitor for symptoms.
[2022-08-10] MEDS: FUROSEMIDE 20 MG TABLET PO SCH (10:18)
[2022-08-10] MEDS: OXYTOCIN/SODIUM CHLORIDE 500 ML IV SCH (13:02)
[2022-08-10] MEDS ORDERED: IBUPROFEN 800 MG TABLET PO PRN (17:59)
[2022-08-11] MEDS: DOCUSATE SODIUM 100 MG CAPSULE PO SCH ×2 (05:48→09:28)
[2022-08-11 08:17] LABS: BASOPHILS # (AUTO) 0.1 10^3/uL (0.0-0.1); BASOPHILS % (AUTO) 0.3 %; EOSINOPHILS # (AUTO) 0.1 10^3/uL (0.0-0.7); EOSINOPHILS % (AUTO) 0.6 %; LYMPHOCYTES # (AUTO) 2.9 10^3/uL (1.5-3.5); LYMPHOCYTES % (AUTO) 16.4 %; MEAN CORPUSCULAR HEMOGLOBIN 30.7 pg (27.0-31.0); MEAN CORPUSCULAR HGB CONC 33.3 g/dL (32.0-36.0); MEAN PLATELET VOLUME 9.7 fL (7.9-10.8); MONOCYTES # (AUTO) 0.9 10^3/uL (0.0-1.0); MONOCYTES % (AUTO) 5.1 %; NEUTROPHILS # (AUTO) 13.5 10^3/uL (1.5-6.6); NEUTROPHILS % (AUTO) 75.7 %; NRBC ABSOLUTE COUNT (AUTO) 0.03 x10^3/uL; NUCLEATED RED BLOOD CELLS AUTO 0.2 /100WBC; PLT - PLATELET COUNT 178 10^3/uL (130-450); RED BLOOD COUNT 2.12 10^6/uL (4.20-5.40); RED CELL DISTRIBUTION WIDTH 14.9 % (12.0-15.0); WHITE BLOOD COUNT 17.8 x10^3/uL (4.8-10.8)
[2022-08-11 08:21] LABS: HCT - HEMATOCRIT 19.5 % (37.0-47.0); HGB - HEMOGLOBIN 6.5 g/dL (12.0-16.0)
[2022-08-11 08:26] LABS: ALBUMIN 2.2 g/dL (3.2-5.5); ALBUMIN/GLOBULIN RATIO 0.8 (1.0-2.2); BILIRUBIN,TOTAL 0.3 mg/dL (0.2-1.0); CALCIUM 7.9 mg/dL (8.5-10.3); CREATININE 0.8 mg/dL (0.4-1.0); POTASSIUM 3.8 mmol/L (3.5-5.0); TOTAL PROTEIN 4.8 g/dL (6.7-8.2)
[2022-08-11] MEDS: ACETAMINOPHEN 500 MG TABLET PO SCH (09:08)
[2022-08-11] MEDS: LABETALOL 100 MG TABLET PO SCH (09:08)
[2022-08-11] MEDS: NIFEdipine ER 30 MG TABLET PO SCH (09:08)
[2022-08-11] MEDS: FUROSEMIDE 20 MG TABLET PO SCH (09:41)
[2022-08-11] MEDS ORDERED: FUROSEMIDE 20 MG/2 ML VIAL IVP PRN (09:41)
[2022-08-11] MEDS ORDERED: SODIUM CHLORIDE 0.9% 500 ML IV ONE (09:43)
--- NOTE | 2022-08-11 09:54 | PROVIDER PROGRESS NOTE ---
Subjective - Prog Note Date Prog Note Date: 08/11/22 Prog Note Time: 09:52 - Subjective Subjective: Patient is PPD#2 s/p complicated by pre-eclampsia and hemorrhage. Patient reports a headache this morning. She denies changes in vision and right upper quadrant pain. Patient is ambulating, tolerating regular diet. Objective - Vital Signs/Intake & Output Reviewed Vital Signs: Yes Vital Signs: Vital Signs x48h Temp Pulse Resp BP Pulse Ox 08/11/22 09:09 98.6 F 112 H 16 132/67 H 100 08/11/22 05:15 97 16 111/16 L 97 Intake & Output: Intake & Output 08/08/22 08/09/22 08/10/22 08/11/22 23:59 23:59 23:59 23:59 Intake Total 1600 4177.084 1412.25 1300 Output Total 565 4610 Balance 1600 3612.084 -3197.75 1300 - Objective General Appearance: positive: No acute distress Respiratory: positive: Breath sounds nml Cardiovascular: positive: Regular rate & rhythm Abdomen: positive: Non-tender, Other (firm fundus below umbilicus) Extremities: positive: Pedal edema (3+) Neurologic/Psychiatric: positive: Oriented x3, Other (DTRS: 2+ no clonus) - Lab Results Fish Bones: 08/11/22 08:09 08/11/22 08:09 Other Labs: Lab Results x24hrs 08/11/22 08/11/22 Range/Units 08:09 08:09 WBC 17.8 H (4.8-10.8) x10^3/uL RBC 2.12 L (4.20-5.40) 10^6/uL Hgb 6.5 L* (12.0-16.0) g/dL Hct 19.5 L* (37.0-47.0) % MCV 92.0 (81.0-99.0) fL MCH 30.7 (27.0-31.0) pg MCHC 33.3 (32.0-36.0) g/dL RDW 14.9 (12.0-15.0) % Plt Count 178 (130-450) 10^3/uL MPV 9.7 (7.9-10.8) fL Neut # (Auto) 13.5 H (1.5-6.6) 10^3/uL Lymph # (Auto) 2.9 (1.5-3.5) 10^3/uL [place] # (Auto) 0.9 (0.0-1.0) 10^3/uL Eos # (Auto) 0.1 (0.0-0.7) 10^3/uL Baso # (Auto) 0.1 (0.0-0.1) 10^3/uL Absolute Nucleated RBC 0.03 x10^3/uL Nucleated RBC % 0.2 /100WBC Sodium 137 (135-145) mmol/L Potassium 3.8 (3.5-5.0) mmol/L Chloride 106 (101-111) mmol/L Carbon Dioxide 26 (21-32) mmol/L Anion Gap 5.0 L (6-13) BUN 11 (6-20) mg/dL Creatinine 0.8 (0.4-1.0) mg/dL Estimated GFR (MDRD) 83 L (>89) Glucose 76 (70-100) mg/dL Calcium 7.9 L (8.5-10.3) mg/dL Total Bilirubin 0.3 (0.2-1.0) mg/dL AST 67 H (10-42) IU/L ALT 29 (10-60) IU/L Alkaline Phosphatase 71 (42-121) IU/L Total Protein 4.8 L (6.7-8.2) g/dL Albumin 2.2 L (3.2-5.5) g/dL Globulin 2.6 (2.1-4.2) g/dL Albumin/Globulin Ratio 0.8 L (1.0-2.2) Assessment/Plan - Problem List (1) Preeclampsia Impression: Blood pressures are within normal range on labetalol and nifedipine Discussed signs and symptoms of pre-eclampsia AST/ALT 67/29 Creatinine is improving 0.8 Qualifiers: Trimester: third trimester Qualified Code(s): O14.93 - Unspecified pre- eclampsia, third trimester (2) Anemia in , delivered, current hospitalization Impression: acute blood loss anemia secondary to hemorrhage hgb/hct this mornin.5/19.5 Recommended blood transfusion. Risks, benefits, and alternatives discussed and consent signed. 2 units of prbcs ordered.
[2022-08-11] MEDS ORDERED: diphenhydrAMINE 25 MG CAPSULE PO SCH (10:00)
--- NOTE | 2022-08-11 16:43 | Discharge Plan ---
Discharge Plan Problem Reviewed?: Yes Disposition: Home, Self Care Condition: Good Prescriptions: NIFEdipine [Procardia Xl] 30 mg PO DAILY #60 tab Labetalol [Trandate] 100 mg PO Q12H #60 tab Diet: Regular Activity Restrictions: (Nothing in the vagina until cleared by Mac TOLBERT) No Smoking: If you smoke, Please STOP! Call for help. Follow-up with: Kelley Hayes PA-C [Primary Care Provider] -
--- NOTE | 2022-08-11 16:56 | DISCHARGE SUMMARY ---
"Discharge Summary Discharge Date: 08/11/22 Discharging Provider: Valeria STREETER Primary Care Provider: Mac TOLBERT Code Status: Attempt Resuscitation Condition at Discharge: Good Discharge Disposition: 01 Home, Self Care - DIAGNOSES Admission Diagnoses: 1. Preeclampsia Discharge Diagnoses with Status of Each Condition: 1. Pre-eclampsia- patient discharged on labetalol 100 mg PO BID and nifedipine 30 XL po daily 2. Acute blood loss anemia secondary to hemorrhage- patient received 2 units prbcs, discharged to home on ferrous sulfate - CONSULTS | PROCEDURES Consultations: consultation with on-call Dr. Lopze for pre-eclampsia, [facility] phone consult Procedures: normal spontaneous vaginal delivery - HOSPITAL COURSE Hospital Course: 31 yo presented at 39+4 weeks for induction of labor secondary to preeclampsia without severe features. AROM. Patient progressed to full cervical dilation. scallop binder physician was consulted for potential VAVD secondary to category II tracing. Pt declined VAVD and section. Patient was started on Pitocin. Patient had an on 08/09 with APGARS of 3/6/7. Patient had hemorrhage and was given piotcin, TXA, misoprostol and hemabate. Initial UPCr was 2.6, however this was after AROM and not straight cath. On-call physician consulted with [facility] due to elevated creatinine (1.8). Patient was on labetalol and nifedpine with no magnesium sulfate per [facility] recommendations. UPCr from straight cath was within normal limits. PPD#1 patients LFTs and creatinine improved, hgb was 7 and patient declined blood transfusion. PPD#2, blood pressures were within normal limits. Hgb 6.5, discussed risks, benefits, and alternatives to blood transfusion and patient consented to transfusion of pRBCs. Patient was counseled on symptoms of pre-eclampsia. [facility]ifedipine. Patient has close follow up. - ALLERGIES Allergies/Adverse Reactions: Allergies Allergy/AdvReac Type Severity Reaction Status Date / Time amoxicillin [From Augmentin] Allergy Unknown Verified 04/22/22 20:40 clavulanic acid Allergy Unknown Verified 04/22/22 20:40 [From Augmentin] Penicillins Allergy Emesis Verified 04/22/22 20:40 dust Allergy Unknown Uncoded 04/22/22 20:40 - MEDICATIONS Home Medications: Ambulatory Orders Medication Instructions Recorded Confirmed Labetalol [Trandate] 100 mg PO Q12H #60 tab 08/11/22 NIFEdipine [Procardia Xl] 30 mg PO DAILY #60 tab 08/11/22 Home Medications Other | Comments: ferrous sulfate - PHYSICAL EXAM AT DISCHARGE General Appearance: positive: No acute distress Eyes Bilateral: positive: Normal inspection Respiratory: positive: Breath sounds nml Cardiovascular: positive: Regular rate & rhythm Abdomen: positive: Non-tender (FFBU) Neurologic/Psychiatric: positive: Oriented x3, Other (DTRs 2+ no clonus) Reflexes: Knee (R): 2+, Knee (L): 2+ - LABS Result Diagrams: 08/11/22 08:09 08/11/22 08:09 - FOLLOW UP Follow Up: With Mac TOLBERT this week Patient counseled on signs and symptoms of pre-eclampsia Advised to call for BPs > 140/90 Advised to come in for SBP >160 or DBP >110 Counseled to come in for headache, changes in vision, right upper quadrant pain, worsening of lower extremity swelling, or any other concerns"
[2022-08-11 17:00] VITALS: BP 133/82
--- NOTE | 2022-08-11 17:50 | Labor Flowsheet ---
Labor Flowsheet Datetime Report Generated by CPN: 08/11/2022 17:50 Datetime: 08/11/2022 16:59 Pulse: 105 SpO2 (%): 100 Datetime: 08/11/2022 16:58 VITAL SIGNS NBP Sys/Yvonne/Mean (mmHg): 133 : 82 : 93 Datetime: 08/09/2022 15:27 Communication Comments: SBAR to RN Rakesh-Rotundo Datetime: 08/09/2022 14:15 Stage of : Recovery Datetime: 08/09/2022 13:30 PAIN Pain Scale: 3 Pain Presence: Constant Pain Type: Dull Pain Location: Perineum Datetime: 08/09/2022 13:29 Respirations: 16 Datetime: 08/09/2022 13:02 Membranes Ruptured Date/Time: 08/08/2022 19:12 Datetime: 08/09/2022 13:00 MATERNAL ASSESSMENT Level of Consciousness: Alert DTR's/Clonus: DTRs 2+ Headache: Denies Breath Sounds, Left: Clear and Equal Breath Sounds, Right: Clear and Equal Datetime: 08/09/2022 12:54 Temperature (C): 37.5 Datetime: 08/09/2022 12:50 LaborFlag: Labor Datetime: 08/09/2022 12:30 UTERINE ACTIVITY Monitor Mode: External Frequency (min): 2-3 Quality: Moderate Duration (sec): 50-70 Pattern: Normal: <= 5 Contractions in 10 Minutes Resting Tone (Palpate): Relaxed ASSESSMENT A Monitor Mode: Telemetry FHR Baseline Rate : 155 Variability: Moderate 6-25 bpm Accelerations: None Category: Category II Datetime: 08/09/2022 12:17 MEDICATIONS Pitocin (milliunits): Started @ 2 Datetime: 08/09/2022 12:06 Patient Care Comments: repositioned to Semi-fowlers, bed broken down Datetime: 08/09/2022 10:58 Pain Assessment Comments: emesis Datetime: 08/09/2022 10:55 Comments: EFM adjusted Datetime: 08/09/2022 10:51 Patient Position/Activity: Left Lateral Datetime: 08/09/2022 09:55 Vital Sign Comments: Manual BP Datetime: 08/09/2022 09:40 Nausea/Vomiting: Unsure Datetime: 08/09/2022 09:24 VAGINAL EXAM Dilatation (cm): 10.0 Effacement (%): 100 Exam by: CNM Mac Datetime: 08/09/2022 09:19 Contraction Comments: toco zeroed Datetime: 08/09/2022 08:30 Decelerations: Late; Variable Datetime: 08/09/2022 07:07 COMMUNICATION Communication: Report Given to @ Jaleesa R RN Datetime: 08/09/2022 06:39 STAGE 2 Pushing: Coached on Pushing Pushing Progress: Descent with Pushing Datetime: 08/09/2022 05:39 Pushing Position: Pushing with Contractions; Pushing Right Side Stage 2 Comments: RNa nd CNM cont at BS to assess second stage and monitor FHR continopusly Datetime: 08/09/2022 04:59 Monitor Interventions for UA: Dortches Adjusted FHR Baseline Changes: No Baseline Change Datetime: 08/09/2022 04:45 Monitor Interventions for FHR: Ultrasound Adjusted Hygiene: Underpad Changed Datetime: 08/09/2022 04:42 Station: 0 Datetime: 08/09/2022 02:19 Vaginal Bleeding: None Datetime: 08/09/2022 01:54 Provider Notified (Name): A Mac CNM Notification Reason: Status Update; Patient Request Datetime: 08/09/2022 01:37 Comfort Measures: Breathing/Relaxation; Coaching; Family Support; Building Services Supervisor Support Datetime: 08/09/2022 00:51 Vaginal Exam Comments: exam discussed. pt wants to wait at this time Datetime: 08/08/2022 21:01 Pain Relief Measures: Comfort Measures Pain Coping: Talking Through Contractions Membrane Status: Ruptured Amniotic Fluid Color: Clear Amniotic Fluid Odor: None Pool: Negative RUQ Epigastric Pain: Denies Oxygen Method: Room Air ANESTHESIA Anesthesia Plans: None TEACHING Instructional Method: Verbal Plan of Care: Plan of Care Discussed; Labor; Induction; Gestational Hypertension/Preeclampsia/Eclam psia Unit Routine: [place] to Room; [facility] [place] Labor/Induction: Labor Stages; Augmentation; Induction Medications: Pitocin Datetime: 08/08/2022 20:34 PATIENT CARE IV/Blood Work: IV Started; Labs Drawn with IV Start I/O Interventions: Ice Chips Given; Clear Liquids Given Datetime: 08/08/2022 19:30 Provider Reviewed Strip: Yes Datetime: 08/08/2022 19:12 Membranes Rupture Method: Artificial Amniotic Fluid Amount: Moderate
== END 2022-08-11 17:45 | disposition home or self-care (01) | DRG 806 ==
LOC: WFO 18:42 → FBP 18:49 → WFO 21:49
PROVIDERS: ADMIT Nurse Practitioner Obstetrics & Gynecology; ATTEND Obstetrics & Gynecology Obstetrics
PROC: 10907ZC Drainage of Amniotic Fluid, Therapeutic from Products of Conception, Via Natural or Artificial Opening (ICD-10-PCS; 2022-08-08)
PROC: 10E0XZZ Delivery of Products of Conception, External Approach (ICD-10-PCS; principal; 2022-08-09)
PROC: 30233N1 Transfusion of Nonautologous Red Blood Cells into Peripheral Vein, Percutaneous Approach (ICD-10-PCS; 2022-08-09)
DX: O14.04 Mild to moderate pre-eclampsia, complicating childbirth (principal); D62 Acute posthemorrhagic anemia; Z37.0 Single live birth; O98.32 Other infections with a predominantly sexual mode of transmission complicating childbirth; A60.00 Herpesviral infection of urogenital system, unspecified; O75.81 Maternal exhaustion complicating labor and delivery; O69.81X0 Labor and delivery complicated by cord around neck, without compression, not applicable or unspecified; O72.2 Delayed and secondary postpartum hemorrhage; Z3A.39 39 weeks gestation of pregnancy; O90.81 Anemia of the puerperium; O99.344 Other mental disorders complicating childbirth; F32.A Depression, unspecified; F41.9 Anxiety disorder, unspecified; O99.893 Other specified diseases and conditions complicating puerperium; R00.0 Tachycardia, unspecified
CPT/HCPCS: 36415; 80053; 82570; 84156; 85025; 86850; 86900; 86901; 86920; A9270; J2916; J7120; P9016

== ENCOUNTER 2023-10-06 07:01 | Outpatient (CLI) | payer OTHER ==
--- NOTE | 2023-10-06 18:50 | Ultrasound Report ---
PROCEDURE: OB 1st Trimester INDICATIONS: TWIN OUTSIDE/PRIOR DATING DATA: Last menstrual period (LMP): 06/27/2023. LMP-based estimated date of delivery (KIM): 04/02/2024. First dating scan (date and location): 10/06/2023. Estimated date of delivery (KIM) from first dating scan: 04/13/2024. The below data below was generated using the study generated KIM of 04/13/2024 TECHNIQUE: Real-time scanning was performed of the fetuses and maternal pelvic organs, with image documentation. Endovaginal scanning: Performed for better visualization of the fetuses and maternal adnexal structu res. COMPARISON: None. FINDINGS: GENERAL: An intrauterine diamniotic monochorionic twin is present. Embryo A: [place]-rump length measures 6.61 cm with estimated gestational age of 12 weeks, 6 days Heart rate: 148 bpm. Embryo B: [place]-rump length measures 6.68 cm with estimated gestational age of 13 weeks,. Day. Heart rate: 152 bpm Measurement variability in dating: +/- 4 weeks by LMP, +/- 7 days by mean sac diameter (use before 6 weeks gestation if crown-rump length not able to be measured), +/- 5 days by crown-rump length (6-12 weeks gestation). Maternal organs: Ovaries are visualized and are within normal limits.. Cervix is closed and measures 5.1 cm in length. IMPRESSION: 1. Diamniotic and monochorionic twin intrauterine gestation. Estimated gestational age based on curre nt study is 12 weeks, 6 days. heart rate for twin A is 148 bpm. heart rate for twin B is 150 bpm. Reviewed by: Sreekanth Ely MD on 10/06/2023 6:49 PM PDT Approved by: Sreekanth Ely MD on 10/06/2023 6:49 PM PDT Station ID: [id number]
--- NOTE | 2023-10-06 18:50 | Ultrasound Report ---
PROCEDURE: OB 1st Trimester - Twins INDICATIONS: TWIN OUTSIDE/PRIOR DATING DATA: Last menstrual period (LMP): 06/27/2023. LMP-based estimated date of delivery (KIM): 04/02/2024. First dating scan (date and location): 10/06/2023. Estimated date of delivery (KIM) from first dating scan: 04/13/2024. The below data below was generated using the study generated KIM of 04/13/2024 TECHNIQUE: Real-time scanning was performed of the fetuses and maternal pelvic organs, with image documentation. Endovaginal scanning: Performed for better visualization of the fetuses and maternal adnexal structu res. COMPARISON: None. FINDINGS: GENERAL: An intrauterine diamniotic monochorionic twin is present. Embryo A: Avis-rump length measures 6.61 cm with estimated gestational age of 12 weeks, 6 days Heart rate: 148 bpm. Embryo B: Avis-rump length measures 6.68 cm with estimated gestational age of 13 weeks,. Day. Heart rate: 152 bpm Measurement variability in dating: +/- 4 weeks by LMP, +/- 7 days by mean sac diameter (use before 6 weeks gestation if crown-rump length not able to be measured), +/- 5 days by crown-rump length (6-12 weeks gestation). Maternal organs: Ovaries are visualized and are within normal limits.. Cervix is closed and measures 5.1 cm in length. IMPRESSION: 1. Diamniotic and monochorionic twin intrauterine gestation. Estimated gestational age based on curre nt study is 12 weeks, 6 days. heart rate for twin A is 148 bpm. heart rate for twin B is 150 bpm. Reviewed by: Sreekanth Ely MD on 10/06/2023 6:48 PM PDT Approved by: Sreekanth Ely MD on 10/06/2023 6:48 PM PDT Station ID: [id number]
== END 2023-10-06 07:02 | disposition home or self-care (01) ==
LOC: DI 07:01
PROVIDERS: ATTEND Nurse Practitioner Obstetrics & Gynecology
DX: O30.031 Twin pregnancy, monochorionic/diamniotic, first trimester (principal); Z3A.12 12 weeks gestation of pregnancy